=== PATIENT | female | born 1935 | race Caucasian/White ===

== ENCOUNTER 2016-09-24 11:32 | Inpatient (IN) | payer OTHER ==
--- NOTE | 2016-09-24 11:37 | EDPHY ---
HPI/HX/ROS/PE/MDM Narrative: CHIEF COMPLAINT: Hematemesis HPI: The patient is an 80-year-old female brought in by EMS with hematemesis. The patient complains of nausea and vomiting for the past 2 days. According to staff at the rehabilitation facility her last episode of emesis was black. Patient states she is unable to keep anything down. Vitals during transport were normal, pulse 102, BP: 114/40, O2: 94% room air, d-stick 137. The patient denies bloody stool, abdominal pain, or fever. Patient has no history of abdominal surgery. The patient was seen at [facility] 09/20 after a fall. She sustained a lumbar fracture and extensive ecchymosis to both arms. Hematocrit at that time was 28.2 The patient is currently in an assisted living facility. REVIEW OF SYSTEMS: Aside from elements discussed in the HPI, a comprehensive 10-point review of systems was reviewed and is negative. PMH: Macular degeneration, Osteoarthritis, Anemia, Lumbar fracture SOCIAL HISTORY: Lives at home independently. PHYSICAL EXAM: General: Patient is alert, in no acute distress. ENT: Eyes are normal to inspection. ENT inspection normal. Neck: Normal inspection. Full range of motion. Respiratory: No respiratory distress. Breath sounds normal bilaterally. Cardiovascular: Regular rate and rhythm. Strong peripheral pulses. Abdomen: The abdomen is nontender to palpation. There are no peritoneal signs. There are normal bowel sounds. Back: Normal to inspection. No tenderness to palpation. Skin: Normal color. No rash. Warm and dry. Extremities: Extensive ecchymosis of both arms, Pale appearing. Neuro: Oriented x3. Normal motor function. Normal sensory function. ED Course: The patient presents with coffee colored hematemesis that started today. I suspect upper GI bleed. The patient was seen at [facility] 09/20 after a fall. She sustained a lumbar fracture and extensive ecchymosis to both arms. Hematocrit of 09/20 was 28.2, today it is 25.8. 1:10 p.m.: I spoke to the hospitalist, the patient will be admitted to Dr. Estrada. MDM: This patient presents with report from [facility] of hematemesis/coffee ground emesis. She appears pale but is hemodynamically stable here in the ED. She is at elevated risk of complication from GI bleed secondary to age, baseline anemia and elevated INR and as such requires admission to the hospital for further observation and workup. - Data Points Laboratory Results: Laboratory Results 09/24/16 11:48 09/24/16 11:48 09/24/16 09/24/16 09/24/16 11:48 11:48 11:48 WBC 6.65 10^3/uL 10^3/uL (3.80-9.50) RBC 2.25 10^6/uL L 10^6/uL (4.18-5.33) Hgb 8.6 g/dL L g/dL (12.6-16.3) Hct 25.8 % L % (38.0-47.0) MCV 114.7 fL H fL (81.5-99.8) MCH 38.2 pg H pg (27.9-34.1) MCHC 33.3 g/dL g/dL (32.4-36.7) RDW 19.6 % H % (11.5-15.2) Plt Count 150 10^3/uL 10^3/uL (150-400) MPV 11.1 fL fL (8.7-11.7) Neut % (Auto) 71.3 % % (39.3-74.2) Lymph % (Auto) 20.2 % % (15.0-45.0) Gonzales % (Auto) 7.5 % % (4.5-13.0) Eos % (Auto) 0.2 % L % (0.6-7.6) Baso % (Auto) 0.2 % L % (0.3-1.7) Nucleat RBC Rel Count 0.0 % % (0.0-0.2) Absolute Neuts (auto) 4.75 10^3/uL 10^3/uL (1.70-6.50) Absolute Lymphs (auto) 1.34 10^3/uL 10^3/uL (1.00-3.00) Absolute Monos (auto) 0.50 10^3/uL 10^3/uL (0.30-0.80) Absolute Eos (auto) 0.01 10^3/uL L 10^3/uL (0.03-0.40) Absolute Basos (auto) 0.01 10^3/uL L 10^3/uL (0.02-0.10) Absolute Nucleated RBC 0.00 10^3/uL 10^3/uL (0-0.01) Immature Gran % 0.6 % % (0.0-1.1) Immature Gran # 0.04 10^3/uL 10^3/uL (0.00-0.10) PT 15.9 SEC H SEC (12.0-15.0) INR 1.27 H (0.83-1.16) APTT 33.7 SEC SEC (23.0-38.0) Sodium 138 mEq/L mEq/L (134-144) Potassium 4.1 mEq/L mEq/L (3.5-5.2) Chloride 107 mEq/L mEq/L (97-110) Carbon Dioxide 26 mEq/l mEq/l (22-31) Anion Gap 5 mEq/L L mEq/L (8-16) BUN 10 mg/dL mg/dL (7-23) Creatinine 0.5 mg/dL L mg/dL (0.6-1.0) Estimated GFR > 60 Glucose 108 mg/dL H mg/dL (70-100) Calcium 8.1 mg/dL L mg/dL (8.5-10.4) Total Bilirubin 2.4 mg/dL H mg/dL (0.1-1.4) Conjugated Bilirubin 0.6 mg/dL H mg/dL (0.0-0.5) Unconjugated Bilirubin 1.8 mg/dL H mg/dL (0.0-1.1) AST 33 IU/L IU/L (14-46) ALT 29 IU/L IU/L (9-52) Alkaline Phosphatase 106 IU/L IU/L (38-126) Total Protein 6.4 g/dL g/dL (6.3-8.2) Albumin 2.3 g/dL L g/dL (3.5-5.0) General Initial Vital Signs: Initial Vital Signs Temperature (C) 36.5 C 09/24/16 11:32 Heart Rate 98 09/24/16 11:32 Respiratory Rate 18 09/24/16 11:32 Blood Pressure 112/70 09/24/16 11:32 O2 Sat (%) 92 09/24/16 11:32 O2 Delivery Mode Room Air O2 (L/minute) 2 Allergies/Adverse Reactions: No Known Allergies Allergy (Unverified 09/24/16 11:38) Home Medications: Medication Instructions Recorded Acetaminophen [Tylenol 325mg (*)] 650 mg PO Q4H PRN 09/24/16 Amoxicillin/Clavulanate Pot 875 mg PO BID 09/24/16 [Augmentin 875 MG TAB (*)] C/E/Zn/Cu/OM3/DHA/EPA/LUT/ZEAX 1 each PO DAILY 09/24/16 [Preservision Areds 2 Softgel] Calcitonin [Fortical (*)] 200 units NASAL DAILY 09/24/16 Lidocaine 5% [Lidoderm 5% Patch 1 ea TD DAILY 09/24/16 (*)] Nystatin Powder [Mycostatin Powder 1 elisabeth TOP BID 09/24/16 (RX)] Ondansetron Odt [Zofran Odt 4 mg 4 mg PO Q4H PRN 09/24/16 (*)] Sennosides/Docusate Sodium 1 each PO Q12H PRN 09/24/16 [Senna-Docusate Sodium Tablet] Departure - Departure Disposition: [facility] Acute Clinical Impression: Upper GI bleed Condition: Fair Report Scribed for: Cipriano Carter Report Scribed by: Brooke Hunter Date of Report: 09/24/16 Time of Report: 11:51 Physician Review and Approval Statement: Portions of this note were transcribed by a medical dosimetrist. I personally performed the history, physical exam, and medical decision-making; and confirmed the accuracy of the information in the transcribed note.
[2016-09-24 11:56] LABS: % IMMATURE GRANULYOCYTES 0.6 % (0.0-1.1); ABSOLUTE IMMATURE GRANULOCYTES 0.04 10^3/uL (0.00-0.10); ADD DIFF? NO; ADD MORPH? NO; ADD SCAN? NO; ATYPICAL LYMPHOCYTE FLAG 60 (0-99); FRAGMENT RBC FLAG 0 (0-99); HEMATOCRIT 25.8 % (38.0-47.0); HEMOGLOBIN 8.6 g/dL (12.6-16.3); LEFT SHIFT FLG 0 (0-99); LIPEMIA HEMOLYSIS FLAG 80 (0-99); MEAN CELL HEMOGLOBIN 38.2 pg (27.9-34.1); MEAN CELL HEMOGLOBIN CONCENTR. 33.3 g/dL (32.4-36.7); MEAN CELL VOLUME 114.7 fL (81.5-99.8); MEAN PLATELET VOLUME 11.1 fL (8.7-11.7); PLATELET CLUMPS FLAG 10 (0-99); PLATELET COUNT 150 10^3/uL (150-400); RED BLOOD CELL COUNT 2.25 10^6/uL (4.18-5.33); RED CELL DISTRIBUTION WIDTH 19.6 % (11.5-15.2)
[2016-09-24 12:04] LABS: INR 1.27 (0.83-1.16); PROTIME(PATIENT) 15.9 SEC (12.0-15.0)
[2016-09-24 12:05] LABS: APTT 33.7 SEC (23.0-38.0)
[2016-09-24 12:24] LABS: ALANINE AMINOTRANSFERASE 29 IU/L (9-52); ALBUMIN 2.3 g/dL (3.5-5.0); ALKALINE PHOSPHATASE 106 IU/L (38-126); ANION GAP 5 mEq/L (8-16); ASPARTATE AMINOTRANSFERASE 33 IU/L (14-46); BILIRUBIN,TOTAL 2.4 mg/dL (0.1-1.4); BILIRUBIN-CONJUGATED 0.6 mg/dL (0.0-0.5); BILIRUBIN-UNCONJUGATED 1.8 mg/dL (0.0-1.1); CALCIUM 8.1 mg/dL (8.5-10.4); CARBON DIOXIDE 26 mEq/l (22-31); CHLORIDE 107 mEq/L (97-110); CREATININE 0.5 mg/dL (0.6-1.0); GLOMERULAR FILTRATION RATE > 60; GLUCOSE 108 mg/dL (70-100); POTASSIUM 4.1 mEq/L (3.5-5.2); SODIUM 138 mEq/L (134-144); TOTAL PROTEIN 6.4 g/dL (6.3-8.2)
[2016-09-24] MEDS ORDERED: BISACODYL 10 MG SUPP PR PRN (14:33)
[2016-09-24] MEDS ORDERED: POLYETHYLENE GLYCOL 3350 17 GM PKT PO PRN (14:33)
[2016-09-24] MEDS ORDERED: ONDANSETRON DISINTEGRATING 4 MG TAB PO PRN (14:33)
[2016-09-24] MEDS ORDERED: LACTULOSE 20 GM/30 ML UDCUP PO PRN (14:33)
[2016-09-24] MEDS ORDERED: ACETAMINOPHEN 325 MG TAB PO PRN (14:33)
[2016-09-24] MEDS ORDERED: ONDANSETRON 4 MG/2 ML VIAL IVP PRN (14:33)
[2016-09-24] MEDS ORDERED: MAGNESIUM HYDROXIDE 30 ML UDCUP PO PRN (14:33)
[2016-09-24] MEDS ORDERED: PROMETHAZINE HCL 25 MG TAB PO PRN (14:33)
[2016-09-24] MEDS ORDERED: HYDROmorphONE/DILAUDID 1 MG/ML SYR IVP PRN (14:33)
[2016-09-24] MEDS ORDERED: NS 1,000 ML IV SCH (14:45)
--- NOTE | 2016-09-24 14:45 | PDGENHP ---
History and Physical - Chief Complaint n/v - History of Present Illness 80 yo F presenting with several days of n/v and concerns raised at [facility] she is currently residing for hematemesis. Patient has evidence of some level of cognitive dysfunction at the time of my evaluation and therefore this history is limited by her confusion, family is present at bedside and also helping with history. Patient notes that 2 weeks ago she fell bringing trash out to the garage, and was subsequently so weak that she was unable to get up and was on the ground apparently for 2 days. She was brought into [facility] where she was worked up for weakness and found to have a subacute thoracic compression fracture, she was seen by nsg and treated with Haydee brace. She was also found to have a UTI and treated for that w/abx. She was discharged to [facility] 2 days prior to admission here. She notes she has never done well with pills, and at [facility] they were having her take some medications crushed in apple sauce, and frequently after taking these medications she would have nausea and vomiting. The last time was this morning, and it was noted at that time that her vomit appeared dark and possibly concerning for hematemesis. She denies abd pain. She does not take OTC pain medications, specifically NSAIDS or aspirin, although she admits that she is not sure what they are giving her at [facility]. She also notes continued significant left sided weakness. This is so severe that she has been unable to ambulate or even use the commode, she has been using a bedpan. She has limited mobility of her left arm and leg since the fall, this is not due strictly to pain per her, but rather that she simply cannot move these limbs very well anymore. She denies numbness. History Information - Allergies/Home Medication List Allergies/Adverse Reactions: No Known Allergies Allergy (Unverified 09/24/16 11:38) Home Medications: Acetaminophen [Tylenol 325mg (*)] 650 mg PO Q4H PRN 09/24/16 [Last Taken Unknown ] Amoxicillin/Clavulanate Pot [Augmentin 875 MG TAB (*)] 875 mg PO BID 09/24/16 [ Last Taken Unknown] C/E/Zn/Cu/OM3/DHA/EPA/LUT/ZEAX [Preservision Areds 2 Softgel] 1 each PO DAILY [Last Taken Unknown] Calcitonin [Fortical (*)] 200 units NASAL DAILY 09/24/16 [Last Taken Unknown] Lidocaine 5% [Lidoderm 5% Patch (*)] 1 ea TD DAILY 09/24/16 [Last Taken Unknown] Nystatin Powder [Mycostatin Powder (RX)] 1 elisabeth TOP BID 09/24/16 [Last Taken Unknown] Ondansetron Odt [Zofran Odt 4 mg (*)] 4 mg PO Q4H PRN 09/24/16 [Last Taken Unknown] Sennosides/Docusate Sodium [Senna-Docusate Sodium Tablet] 1 each PO Q12H PRN 08/08 [Last Taken Unknown] I have personally reviewed and updated: family history, medical history, social history, surgical history - Past Medical History Additional medical history: compression fracture t12. macular degeneration - Surgical History Reports: no pertinent surgical hx - Family History Positive for: non-pertinent - Social History Smoking Status: Former smoker Alcohol Use: Other (patient states she drinks regularly--up to 2-3 drinks per day) Drug Use: None Additional social history: currently residing at [facility] for the last 2 days. . Prior to one week or so ago lived independently. Has 2 children. Review of Systems ROS: 10pt was reviewed & negative except for what was stated in HPI & below Physical Exam Temp Pulse Resp BP Pulse Ox 36.7 C 92 20 118/56 L 92 09/24/16 14:33 09/24/16 14:33 09/24/16 14:33 09/24/16 14:33 09/24/16 14:33 Constitutional: no apparent distress, appears nourished, unkempt Eyes: PERRL Ears, Nose, Mouth, Throat: moist mucous membranes, hearing normal Cardiovascular: regular rate and rhythym, systolic murmur, edema Respiratory: no respiratory distress, no rales or rhonchi, clear to auscultation Gastrointestinal: normoactive bowel sounds, soft, non-tender abdomen Genitourinary: no bladder tenderness Skin: warm, other (hyperpigmented ble c/w venous stasis) Musculoskeletal: No full muscle strength, No asymmetric calves Neurologic: AAOx3, sensation intact bilaterally, weakness (left upper and lower extremity weakness), CN II-XII Intact Psychiatric: interacting appropriately, not anxious, flat affect, No thought process linear Lab Data & Imaging Review 09/24/16 11:48 09/24/16 11:48 WBC 6.65 10^3/uL (3.80-9.50) 09/24/16 11:48 RBC 2.25 10^6/uL (4.18-5.33) L 09/24/16 11:48 Hgb 8.6 g/dL (12.6-16.3) L 09/24/16 11:48 Hct 25.8 % (38.0-47.0) L 09/24/16 11:48 MCV 114.7 fL (81.5-99.8) H 09/24/16 11:48 MCH 38.2 pg (27.9-34.1) H 09/24/16 11:48 MCHC 33.3 g/dL (32.4-36.7) 09/24/16 11:48 RDW 19.6 % (11.5-15.2) H 09/24/16 11:48 Plt Count 150 10^3/uL (150-400) 09/24/16 11:48 MPV 11.1 fL (8.7-11.7) 09/24/16 11:48 Neut % (Auto) 71.3 % (39.3-74.2) 09/24/16 11:48 Lymph % (Auto) 20.2 % (15.0-45.0) 09/24/16 11:48 [place] % (Auto) 7.5 % (4.5-13.0) 09/24/16 11:48 Eos % (Auto) 0.2 % (0.6-7.6) L 09/24/16 11:48 Baso % (Auto) 0.2 % (0.3-1.7) L 09/24/16 11:48 Nucleat RBC Rel Count 0.0 % (0.0-0.2) 09/24/16 11:48 Absolute Neuts (auto) 4.75 10^3/uL (1.70-6.50) 09/24/16 11:48 Absolute Lymphs (auto) 1.34 10^3/uL (1.00-3.00) 09/24/16 11:48 Absolute Monos (auto) 0.50 10^3/uL (0.30-0.80) 09/24/16 11:48 Absolute Eos (auto) 0.01 10^3/uL (0.03-0.40) L 09/24/16 11:48 Absolute Basos (auto) 0.01 10^3/uL (0.02-0.10) L 09/24/16 11:48 Absolute Nucleated RBC 0.00 10^3/uL (0-0.01) 09/24/16 11:48 Immature Gran % 0.6 % (0.0-1.1) 09/24/16 11:48 Immature Gran # 0.04 10^3/uL (0.00-0.10) 09/24/16 11:48 PT 15.9 SEC (12.0-15.0) H 09/24/16 11:48 INR 1.27 (0.83-1.16) H 09/24/16 11:48 APTT 33.7 SEC (23.0-38.0) 09/24/16 11:48 Sodium 138 mEq/L (134-144) 09/24/16 11:48 Potassium 4.1 mEq/L (3.5-5.2) 09/24/16 11:48 Chloride 107 mEq/L (97-110) 09/24/16 11:48 Carbon Dioxide 26 mEq/l (22-31) 09/24/16 11:48 Anion Gap 5 mEq/L (8-16) L 09/24/16 11:48 BUN 10 mg/dL (7-23) 09/24/16 11:48 Creatinine 0.5 mg/dL (0.6-1.0) L 09/24/16 11:48 Estimated GFR > 60 09/24/16 11:48 Glucose 108 mg/dL (70-100) H 09/24/16 11:48 Calcium 8.1 mg/dL (8.5-10.4) L 09/24/16 11:48 Total Bilirubin 2.4 mg/dL (0.1-1.4) H 09/24/16 11:48 Conjugated Bilirubin 0.6 mg/dL (0.0-0.5) H 09/24/16 11:48 Unconjugated Bilirubin 1.8 mg/dL (0.0-1.1) H 09/24/16 11:48 AST 33 IU/L (14-46) 09/24/16 11:48 ALT 29 IU/L (9-52) 09/24/16 11:48 Alkaline Phosphatase 106 IU/L (38-126) 09/24/16 11:48 Total Protein 6.4 g/dL (6.3-8.2) 09/24/16 11:48 Albumin 2.3 g/dL (3.5-5.0) L 09/24/16 11:48 Assessment & Plan Assessment: 80 yo F with PMH of fall about 2 weeks ago and residual dense left sided weakness pw n/v and possible hematemesis # n/v: sounds related to pills which she does not tolerate well, currently without any nausea. Will start clear liquids and ask for speech to eval. # ? hematemesis: reported from facility to have had dark emesis concerning for UGIB. Has not recurred, H/H low but relatively stable from one week prior. Possible MWT given days of vomiting preceding dark vomit. Will trend h/h and monitor for recurrence. Patient has declined endoscopy in the past so will need to discuss with patient and family further if seems indicated # left sided weakness: relatively dense left sided weakness still present, patient unable to walk currently and was independent completely a little more than 1 week ago. In review of records from [facility], had CT head and CT L spine, but no brain MRI and weakness largely attributed to compression fracture. Have concerns for subacute CVA so will obtain brain MRI. Neuro consult if abnormal. PT/OT to be involved. will dc back to snf. 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 Old records reviewed and summarized as above. Care plan reviewed with ER doctor as above, further hx obtained from daughter and son in law present at bedside.
[2016-09-24] MEDS: oxyCODONE IR 5 MG TAB PO PRN ×2 (17:06→21:47)
[2016-09-24 18:48] LABS: HEMATOCRIT 24.6 % (38.0-47.0); HEMOGLOBIN 8.1 g/dL (12.6-16.3)
[2016-09-24] MEDS ORDERED: AMOXICILLIN/CLAVULANATE POT 875/125 MG TAB PO SCH (21:00)
[2016-09-24] MEDS: SENNOSIDES/DOCUSATE SODIUM TAB PO SCH (21:57)
[2016-09-24] MEDS: NYSTATIN POWDER 15 GM BTL TP SCH (23:10)
[2016-09-24 23:37] LABS: COLOR AMBER; LEUKOCYTE ESTERASE,URINE NEGATIVE (NEGATIVE); NITRITE,URINE NEGATIVE (NEGATIVE)
[2016-09-25 05:44] LABS: % IMMATURE GRANULYOCYTES 0.4 % (0.0-1.1); ABSOLUTE IMMATURE GRANULOCYTES 0.02 10^3/uL (0.00-0.10); ADD DIFF? NO; ADD MORPH? YES; ADD SCAN? NO; ATYPICAL LYMPHOCYTE FLAG 70 (0-99); FRAGMENT RBC FLAG 0 (0-99); HEMATOCRIT 23.7 % (38.0-47.0); HEMOGLOBIN 7.5 g/dL (12.6-16.3); LEFT SHIFT FLG 0 (0-99); LIPEMIA HEMOLYSIS FLAG 80 (0-99); MEAN CELL HEMOGLOBIN 36.9 pg (27.9-34.1); MEAN CELL HEMOGLOBIN CONCENTR. 31.6 g/dL (32.4-36.7); MEAN PLATELET VOLUME 10.9 fL (8.7-11.7); PLATELET CLUMPS FLAG 0 (0-99); PLATELET COUNT 123 10^3/uL (150-400); RED BLOOD CELL COUNT 2.03 10^6/uL (4.18-5.33); RED CELL DISTRIBUTION WIDTH 19.6 % (11.5-15.2)
[2016-09-25 06:01] LABS: MEAN CELL VOLUME 116.7 fL (81.5-99.8)
[2016-09-25 06:24] LABS: ANION GAP 7 mEq/L (8-16); CALCIUM 7.7 mg/dL (8.5-10.4); CARBON DIOXIDE 23 mEq/l (22-31); CHLORIDE 111 mEq/L (97-110); CREATININE 0.5 mg/dL (0.6-1.0); GLOMERULAR FILTRATION RATE > 60; GLUCOSE 71 mg/dL (70-100); POTASSIUM 3.4 mEq/L (3.5-5.2); SODIUM 141 mEq/L (134-144)
[2016-09-25 07:42] LABS: MACROCYTES 2+; PLATELET ESTIMATE DECREASED (ADEQ)
[2016-09-25 07:43] LABS: POLYCHROMASIA 1+
[2016-09-25] MEDS ORDERED: PROTOCOL POTASSIUM 1 DOSE MISC PRN (07:54)
--- NOTE | 2016-09-25 08:41 | HOSPPROG ---
Hospitalist Progress Note Assessment/Plan: Patient is an 80 y/o woman who had several days of n/v. Also was noted that she had some bouts of vomiting, concern for hematemesis. She was also recently seen @ [facility] for weakness and found to have subacute thoracic compression fracture and treated w a [place] brace. At that time also had a UTI and was treated. Today is my first encounter w the patient. Chart reviewed / discussed care with Dr Rick. Appreciate Dr Loya seeing her. *n/v: ST to see/pt doesn't tolerate pills patient describes not being able to swallow pills/that is what is causing the nausea concern for stricture *anemia drop over night concern is she had hematemesis will discuss w patient and family about poss endoscopy/ had declined in the past initiate PPI NPO Dr Loya to see *gait instability w fall 2 weeks ago suspect it's not left sided weakness but pain patient stated she had multiple xrays done, including on left side getting info from [facility] sent *left side weakness noted on admit/ but is having more pain will get xrays MRI doesn't indicate a stroke *compression fx/ subacute T12 had been evaluated by neurosurgery at [facility] *gait instability with recent falls PT and OT to see *hypokalemia electrolyte protocol *diastolic dysfunction/valvular heart disease no decompensation noted *dvt prophylaixs: will hold chemical treatment due to drop in h/h *Code status: MOST form shows DNR Subjective: Reena is willing to get an EGD/was fearful because of her difficulty w swallowing. Objective: Vital Signs Temp Pulse Resp BP Pulse Ox 36.4 C 88 16 93/45 L 99 09/25/16 08:06 09/25/16 08:06 09/25/16 08:06 09/25/16 08:06 09/25/16 08:06 Laboratory Results 09/25/16 05:14 09/25/16 05:14 09/24/16 09/25/16 09/26/16 05:59 05:59 05:59 Intake Total 1180 Output Total 300 Balance 880 PT 15.9 SEC (12.0-15.0) H 09/24/16 11:48 INR 1.27 (0.83-1.16) H 09/24/16 11:48 - Physical Exam Constitutional: chronically ill appearing, uncomfortable, No not in pain (left elbow area) Ears, Nose, Mouth, Throat: hearing normal Cardiovascular: regular rate and rhythym Respiratory: no respiratory distress Gastrointestinal: normoactive bowel sounds Skin: warm, other (multiple ecchymotic area on right hand /right wrist area) Musculoskeletal: No no muscle tenderness Neurologic: AAOx3 Psychiatric: interacting appropriately ICD10 Worksheet Patient Problems: Problems Problem Status Onset Upper GI bleed Acute
[2016-09-25] MEDS ORDERED: PANTOPRAZOLE SODIUM 40 MG in NS 100 ML IV SCH (09:00)
--- NOTE | 2016-09-25 09:08 | PDCONSULT ---
Human Resources Professional Note: HOSPITAL NEUROLOGY CONSULT REQUESTING: Zachary Flores MD REASON: possible stroke HPI: This is an 80-year-old right-handed woman with a history of macular degeneration who presented to our facility due to hematemesis. Patient had been admitted to [facility] September 16 through September 20 after suffering a fall at home. She tripped and fell in her garage while taking the garbage out and had landed on her left side. She states that she laid on her left side for upwards of 2 days before she was found. She was transported to [facility] where she was found to have a T12 compression fracture, which was non operative in nature and treated with a brace. She was also found to have an E coli urinary tract infection at that time. Her labs did reveal her to be anemic, but she had apparently declined further workup at that time. She was subsequently discharged to [facility] for rehabilitation. The day prior to her admission here, the patient had been experiencing nausea and was vomiting. Her emesis appeared very dark, and there was concern for the color being the result of blood products in her vomit. She was subsequently transported here for further evaluation of possible upper GI bleed. She was indeed found to be anemic with positive stool occult blood. She was also found to be thrombocytopenic. She is currently undergoing evaluation for upper GI bleed. During her hospitalization, there was some indication that she may have had some left-sided weakness in the arm and leg. An MRI brain without contrast was performed and the report indicated a possible lacunar infarction involving the right posterior limb of the internal capsule. On interview with the patient , she denies any paulo weakness, stating that she is having difficulty moving the left arm and leg due to severe pain, particularly about the left elbow and left forearm as well as the left knee and ankle. She is able to move the extremities very slowly and deliberately in an effort to avoid acute pain exacerbation. She denies any sensory changes. She has no new visual disturbance aside from her baseline central vision loss from macular degeneration. She is not experiencing any speech / language disturbance. ROS: As per the HPI, otherwise a complete 12 point ROS was performed and is negative ALLERGIES AND MEDS: As recorded in the EMR - reviewed and reconciled PFSH: As per the intake H&P by Dr. Estrada from yesterday EXAM: VS reviewed in EMR GEN: frail appearing elderly woman with ecchymoses scattered about the extremities, laying in NAD HEENT: NCAT, sclera anicteric, conjunctiva not injected, MMM, oropharynx clear, no scalp tenderness NECK: supple, nontender, no meningismus CV: RRR s1 s2, grade 2 systolic murmur best at apex. Carotid pulses 2+ wo bruit MSK: tender to touch in the LUE namely about the elbow and forearm, tender in LLE namely about the knee and ankle. Same pain with passive movement of the LUE /LLE. NEURO: MS: awake, alert, oriented to all spheres. Speech nondysarthric. No language disturbance. Follows commands. Attends to both sides. Recent/remote memory grossly intact. Mood euthymic. Good fund of knowledge. CN: pupils 3mm round and reactive. Intolerant of fundoscopy. Central vision loss on confrontation, but peripheral mercado intact OU. Primary gaze centered. Full ocular motility, though smooth pursuit with saccadic intrusions. Facial sensation preserved. Face symmetric. Hearing grossly intact to finger rub. Palatoglossal movements intact. Shoulder shrug and head turn strong. MOTOR: reduced bulk throughout. No adventitial movements. Globally weak, with 4+/5 strength on right, she has giveway weakness in left arm and leg due to pain in the extremities SENSORY: intact and symmetric LT/PP. No extinction. COORD: no ataxia FN/HS. Virginie labored. REFLEX: plantars down. No clonus. DTRS absent. GAIT: deferred to PT eval DATA REVIEW: Labs reviewed in EMR PERSONALLY INTERPRETED RESULTS AND DATA: MRI brain wo - global volume loss, scattered areas of T2 FLAIR hyperintensity in the deep white matter/basal ganglia. I do not see any evidence of restricted diffusion, specifically in the right internal capsule. That is, no change in DWI or ADC signal sequences. IMPRESSION AND RECOMMENDATIONS: // ANEMIA - PROBABLE UGI BLEED // T12 COMPRESSION FRACTURE AFTER FALL // LEFT ARM AND LEG PAIN - TRAUMATIC // LEFT ARM AND LEG WEAKNESS SECONDARY TO PAIN Patient presents with hematemesis and anemia with hemoglobin and platelet counts trending down. Workup for UGI bleed is ongoing with primary team. Her weakness on the left seems to be a result of pain from the trauma and prolonged downtime on the left side after her fall. I don't think this is neurologic in origin. I respectfully disagree with the interpretation of the MRI in that I do not see any evidence of acute/subacute ischemia. She does have some chronic microvascular ischemic changes in the deep white matter/basal ganglia, but nothing acute/subacute. I would recommend screening X-rays of her LUE/LLE to assess for fracture, as her pain to palpation/movement is quite severe and seems a bit out of proportion to soft tissue injury. I discussed this with the primary team. No further neurodiagnostics. She should continue to work with PT/OT. Anemia/GI workup and stabilization per primary team. Case discussed with Camilla Feliz NP. Will sign off. Please recall as needed.
[2016-09-25 09:43] LABS: POTASSIUM 3.5 mEq/L (3.5-5.2)
[2016-09-25] MEDS: SENNOSIDES/DOCUSATE SODIUM TAB PO SCH ×2 (09:52→20:36)
[2016-09-25] MEDS: LIDOCAINE 5% 1 EA PATCH TD SCH (10:07)
[2016-09-25] MEDS: NYSTATIN POWDER 15 GM BTL TP SCH ×2 (10:11→20:35)
[2016-09-25] MEDS ORDERED: EPINEPHrine 1 MG/10 ML SYR IVP ONE (10:36)
[2016-09-25] MEDS ORDERED: DEXAMETHASONE 4 MG/ML VIAL ONE (10:50)
[2016-09-25] MEDS ORDERED: PROPOFOL 200 MG/20 ML VIAL ONE ×2 (10:50)
[2016-09-25] MEDS ORDERED: LIDOCAINE 2% 5 ML SDV ONE (10:51)
[2016-09-25] MEDS ORDERED: FAMOTIDINE 20 MG/2 ML SDV ONE (10:54)
--- NOTE | 2016-09-25 11:16 | POSTOPPROG ---
Post Op Note Date of Operation: 09/25/16 Surgeon: Pascual Loya Finisher Denture: None Anesthesiologist: Dr Benitez Anesthesia: Other (Specify) (IV General) Pre-op Diagnosis: Dysphagia and hematemesis Post-op Diagnosis: 1.Same. 2.Diffuse ulceration of distal esophagus with stricture(dilated). Indication: Dysphagia and hematemesis. Procedure: EGD with balloon dilation of distal esophgeal stricture. Findings: Distal esophageal ulceration with high grade benign stricture. Inf/Abcess present in the surg proc area at time of surgery?: No EBL: Minimal Total fluids administered: None. Complications: None Specimen(s): None.
--- NOTE | 2016-09-25 11:21 | GCON ---
[f rep st] CONSULTATION DATE OF CONSULTATION: 09/25/2016 CHIEF COMPLAINT: Dysphagia, nausea, and an episode of hematemesis. HISTORY OF PRESENT ILLNESS: The patient is an 80-year-old female who was admitted to [facility] on 09/24/2016 with complaints of several days of nausea, vomiting, and hematemesis. She has dysphagia to solids. She has denied any heartburn or indigestion. She has declined endoscopic evaluations in the past. I was asked to see the patient by Camilla Feliz NP , today for consideration of endoscopic evaluation. MEDICATIONS: Prior to admission included: Augmentin 875 mg p.o. twice daily. Zofran 4 mg q.4 hours p.o. p.r.n. nausea. Calcitonin 200 units nasally daily. ALLERGIES: She has no known drug allergies. PAST MEDICAL HISTORY: Significant for valvular heart disease and diastolic dysfunction, compression fracture of T12, chronic left-sided weakness and gait instability, and UTIs. PAST SURGICAL HISTORY: Unremarkable. FAMILY HISTORY: Negative for GI malignancies or peptic ulcer disease. SOCIAL HISTORY: She is a former smoker. She has not smoked for greater than 10 years. She does drink 1-2 drinks of alcohol per day. She resides in [facility] in [place]. She is retired. She is a . She has 2 living children in good health. REVIEW OF SYSTEMS: Other than complaints of weakness, dysphagia, and intermittent nausea, is negative for a comprehensive system review. PHYSICAL EXAMINATION: VITAL SIGNS: On my exam today, her temperature is 36.4 Celsius. Her heart rate is 88 and regular. Blood pressure 93/45. Respiratory rate is 16. O2 saturation 99% on 1 L per nasal cannula. GENERAL: A cachectic- appearing female looking fatigued. INTEGUMENT: Ecchymoses on the upper extremities. HEENT: Head atraumatic, normocephalic. Pupils equal, round, reactive to light. EOM intact. Sclerae are nonicteric. Nares patent. Mucous membranes moist. Dentition fair. NECK: Supple. Trachea midline. LYMPHATICS : No cervical or axillary adenopathy. PULMONARY: Lungs clear to percussion and auscultation. CARDIOVASCULAR: Regular rhythm and rate. Normal S1, S2 without murmur. Peripheral pulses decreased bilaterally. No pedal edema. GASTROINTESTINAL: Abdomen supple. Positive bowel sounds. Liver is palpable. No masses or tenderness noted. EXTREMITIES: Without deformity. NEURO: Patient is alert and oriented x3. There are no focal neurologic deficits. LABS: Hemoglobin 7.5, hematocrit 23.7, white count 5.2, platelets 123,000. ProTime 15.9. INR 1.27. PTT 33.7. Electrolytes normal. BUN 9, creatinine 0.5. LFTs normal. Urinalysis negative. Stool was Hemoccult positive. IMPRESSION: Dysphagia and intermittent nausea with normocytic normochromic anemia and mild thrombocytopenia. Rule out peptic ulcer. Rule out esophageal stricture. RECOMMENDATION: Proceed with esophagogastroduodenoscopy. Due to her multiple medical conditions and frail state she is at increased risk of complication and I will therefore perform this procedure with MAC. /[id number]/MODL MTDD
--- NOTE | 2016-09-25 11:46 | GPN ---
[f rep st] PROCEDURE NOTE DATE OF PROCEDURE: 09/25/2016 NAME OF PROCEDURE: Esophagogastroduodenoscopy with dilation of distal esophageal stricture. PREOPERATIVE DIAGNOSIS: Dysphagia and hematemesis. POSTOPERATIVE DIAGNOSES: 1. Dysphagia and hematemesis. 2. Diffuse ulceration of distal 3 cm of the esophagus with benign stricture- dilated to 12 mm with balloon dilator. 3. Moderate hiatal hernia pouch. CLINICAL HISTORY/INDICATION: The patient is an 80-year-old female who was admitted to the hospital with weakness, dysphagia, nausea and hematemesis and anemia. She does have heme-positive stool. She was set up for EGD today. PERMIT: Patient was informed of indication for procedure. Risks and benefits were outlined by me, informed consent was obtained. PREOPERATIVE MEDICATIONS: IV general anesthetic per Dr. Benitez. PROCEDURE FINDINGS: A GIF-180 video endoscope was inserted into the oropharynx and passed to the proximal esophagus under direct visualization. The esophageal mucosa appeared normal in the cervical esophagus and the mid esophagus; however, the distal 3 cm of the esophagus was diffusely ulcerated and denoted with high-grade stricture. Scope could not pass across this stricture, albeit the lumen could be visualized into the stomach. With an aid of a balloon dilator the distal esophageal stricture was dilated sequentially with 10 mm, 11 mm and 12 mm balloon diameters. Scope could then pass across the stricture into a moderate hiatal hernia pouch and into the stomach. Gastric lumen appeared normal both in front view and retroflexed position of the instrument. Pyloric channel, duodenal bulb and sweep were normal to the second portion of the duodenum. The scope was slowly withdrawn and removed. Patient tolerated procedure well and was sent to recovery room in satisfactory condition. IMPRESSION: Dysphagia and hematemesis secondary to distal esophageal ulceration and stricture-status post dilation to a maximum of 12 mm without difficulty with balloon dilator. RECOMMENDATION: 1. Mechanical soft diet. 2. Protonix 40 mg p.o. twice daily. 3. Would recommend repeat EGD with dilation in 1-2 weeks' time. /[id number]/MODL MTDD
--- NOTE | 2016-09-25 12:26 | WOCRNPDOC ---
WOCRN Advanced Assessment Note - Skin Integrity Problem, Advanced Assess Groin Incont Assoc Dermatitis Skin Integrity Problem Comment: Mild. Sacrum Pressure Injury Dressing Type: Allevyn Life Dressing Description: Clean/Dry, Intact Site Measurement - Head-to-Toe Length X Width X Depth (cm): 3x1.5x0 Pressure Injury Stage: Stage 1 Pressure Injury Present on Admit: Yes Skin Integrity Problem Comment: Stage 1 pressure injury with a thin linear partial thickness opening consisted with intertriginous dermatitis. Please reconsult wound care prn. Patient incontinent of stool and urine. Bilateral Breast Skin Integrity Problem Comment: Being treated with nystatin. Minimal redness. Continue current plan of care.
[2016-09-25] MEDS: POTASSIUM Cl (KCl) 100 ML IV SCH ×2 (13:24→15:12)
[2016-09-25] MEDS: CALCITONIN 200 UNITS/SPRAY INH NS SCH (13:24)
[2016-09-25 18:15] LABS: POTASSIUM 4.1 mEq/L (3.5-5.2)
[2016-09-25] MEDS: PANTOPRAZOLE SODIUM 40 MG in NS 100 ML IV SCH (20:35)
[2016-09-25] MEDS: PATCH REMOVAL 1 EA PATCH TD SCH (20:37)
[2016-09-25] MEDS ORDERED: PANTOPRAZOLE SODIUM 40 MG TAB PO SCH (21:00)
[2016-09-26] MEDS: NS W/ 20 KCl/L 1,000 ML IV SCH (02:19)
[2016-09-26 05:52] LABS: % IMMATURE GRANULYOCYTES 0.4 % (0.0-1.1); ABSOLUTE IMMATURE GRANULOCYTES 0.02 10^3/uL (0.00-0.10); ADD DIFF? NO; ADD MORPH? YES; ADD SCAN? NO; ATYPICAL LYMPHOCYTE FLAG 30 (0-99); FRAGMENT RBC FLAG 0 (0-99); HEMATOCRIT 23.1 % (38.0-47.0); HEMOGLOBIN 7.6 g/dL (12.6-16.3); LEFT SHIFT FLG 10 (0-99); LIPEMIA HEMOLYSIS FLAG 80 (0-99); MEAN CELL HEMOGLOBIN 38.2 pg (27.9-34.1); MEAN CELL HEMOGLOBIN CONCENTR. 32.9 g/dL (32.4-36.7); MEAN PLATELET VOLUME 10.7 fL (8.7-11.7); PLATELET CLUMPS FLAG 0 (0-99); PLATELET COUNT 142 10^3/uL (150-400); RED BLOOD CELL COUNT 1.99 10^6/uL (4.18-5.33); RED CELL DISTRIBUTION WIDTH 19.1 % (11.5-15.2)
[2016-09-26 06:07] LABS: ANION GAP 8 mEq/L (8-16); CALCIUM 7.6 mg/dL (8.5-10.4); CARBON DIOXIDE 21 mEq/l (22-31); CHLORIDE 110 mEq/L (97-110); CREATININE 0.5 mg/dL (0.6-1.0); GLOMERULAR FILTRATION RATE > 60; GLUCOSE 91 mg/dL (70-100); POTASSIUM 4.1 mEq/L (3.5-5.2); SODIUM 139 mEq/L (134-144)
[2016-09-26 06:23] LABS: MEAN CELL VOLUME 116.1 fL (81.5-99.8)
[2016-09-26 07:37] LABS: MACROCYTES 2+; PLATELET ESTIMATE DECREASED (ADEQ); POLYCHROMASIA 2+
--- NOTE | 2016-09-26 08:53 | HOSPPROG ---
Hospitalist Progress Note Assessment/Plan: Patient is an 80 y/o woman who had several days of n/v. Also was noted that she had some bouts of vomiting, concern for hematemesis. She was also recently seen @ [facility] for weakness and found to have subacute thoracic compression fracture and treated w a [place] brace. At that time also had a UTI and was treated. *encephalopathy her mentation waxes and wanes she was alert and oriented this morning, but more confused this afternoon *n/v: resolved *anemia/hematemesis PPI cont to have low h/h but hasn't really worsen EGD noted a distal esophageal ulcer *dysphagia/ stricture status post dilation she will need a repeat EGD in 1-2 weeks *gait instability w fall 2 weeks ago suspect it's not left sided weakness but pain patient stated she had multiple xrays done, including on left side reviewed info from [facility] * elevated MCV patient states that she does not drink that much alcohol will monitor for any signs or symptoms of withdrawal *left side weakness noted on admit/ but is having more pain will get xrays MRI doesn't indicate a stroke *left forearm pain will get an xray *compression fx/ subacute T12 had been evaluated by neurosurgery at [facility] *gait instability with recent falls PT and OT to see *hypokalemia resolved *diastolic dysfunction/valvular heart disease no decompensation noted *dvt prophylaixs: will hold chemical treatment due to drop in h/h *Code status: MOST form shows DNR Subjective: Reena is c/o left forearm pain. Objective: Vital Signs Temp Pulse Resp BP Pulse Ox 36.4 C 84 17 107/54 L 98 09/26/16 07:08 09/26/16 07:08 09/26/16 07:08 09/26/16 07:08 09/26/16 07:08 Laboratory Results 09/26/16 04:49 09/26/16 04:49 09/25/16 09/26/16 09/27/16 05:59 05:59 05:59 Intake Total 1180 1950 Output Total 300 600 Balance 880 1350 PT 15.9 SEC (12.0-15.0) H 09/24/16 11:48 INR 1.27 (0.83-1.16) H 09/24/16 11:48 - Physical Exam Constitutional: chronically ill appearing, uncomfortable, other (thin) Eyes: PERRL Ears, Nose, Mouth, Throat: hearing normal Cardiovascular: regular rate and rhythym Respiratory: no respiratory distress Gastrointestinal: normoactive bowel sounds Skin: warm, other (multilple bruises/ecchymosis on arms) Musculoskeletal: muscular tenderness, generalized weakness Neurologic: other (alert and oriented to place, time, not clear why she's here) Psychiatric: interacting appropriately ICD10 Worksheet Patient Problems: Problems Problem Status Onset Upper GI bleed Acute
[2016-09-26] MEDS ORDERED: MULTIVITAMINS W-IRON (PEDS) 1 ML UDSYR PO SCH (09:30)
[2016-09-26] MEDS: LIDOCAINE 5% 1 EA PATCH TD SCH (09:45)
[2016-09-26] MEDS: THIAMINE HCL 100 MG TAB PO SCH (09:45)
[2016-09-26] MEDS: CALCITONIN 200 UNITS/SPRAY INH NS SCH (09:45)
[2016-09-26] MEDS: FOLIC ACID 1 MG TAB PO SCH (09:45)
[2016-09-26] MEDS: NYSTATIN POWDER 15 GM BTL TP SCH ×2 (09:49→21:51)
[2016-09-26] MEDS: PANTOPRAZOLE SODIUM 40 MG in NS 100 ML IV SCH ×2 (09:56→21:54)
[2016-09-26] MEDS: SENNOSIDES/DOCUSATE SODIUM TAB PO SCH ×2 (09:57→21:30)
--- NOTE | 2016-09-26 13:21 | SOAPPROG ---
SOAP Progress Note Assessment/Plan: Assessment: 1. Dysphagia; resolved after dilation of distal esophageal stricture. 2. Reflux esophageal ulcers; on PPI therapy. Plan: 1. Will sign off today. 2. Will set up outpatient EGD at [facility] with MAC for repeat dilation of esophageal stricture in 2 weeks. Pascual Loya MD 09/26/16 13:18 Subjective: CC: Esophageal stricture. Interval HPI: Patient feeling well. Tolerating regular diet without dysphagia or pain. Objective: Vital Signs Temp Pulse Resp BP Pulse Ox 36.5 C 92 18 111/53 L 93 09/26/16 11:28 09/26/16 11:28 09/26/16 11:28 09/26/16 11:28 09/26/16 12:20 Laboratory Results 09/26/16 04:49 09/26/16 04:49 09/25/16 09/26/16 09/27/16 05:59 05:59 05:59 Intake Total 1180 1950 300 Output Total 300 600 Balance 880 1350 300 PT 15.9 SEC (12.0-15.0) H 09/24/16 11:48 INR 1.27 (0.83-1.16) H 09/24/16 11:48 Physical Exam - Physical Exam General Appearance: alert, no apparent distress Respiratory: chest non-tender, lungs clear, normal breath sounds Cardiac/Chest: normal peripheral pulses, regular rate, rhythm Abdomen: normal bowel sounds, non-tender, soft Neuro/Psych: alert, normal mood/affect, oriented x 3 ICD10 Worksheet Patient Problems: Problems Problem Status Onset Upper GI bleed Acute
[2016-09-26 16:11] VITALS: RESP 16
[2016-09-26] MEDS: MULTIVIT/MINERAL/FERR GLUC 15 ML UDL PO SCH (17:23)
[2016-09-26 18:36] LABS: POTASSIUM 3.7 mEq/L (3.5-5.2)
[2016-09-26] MEDS ORDERED: POTASSIUM CL 10 MEQ TAB PO ONE ×2 (18:48→22:00)
[2016-09-26] MEDS: PATCH REMOVAL 1 EA PATCH TD SCH (21:51)
[2016-09-26 22:33] VITALS: O2SAT 91
[2016-09-27 05:32] LABS: ALANINE AMINOTRANSFERASE 37 IU/L (9-52); ALBUMIN 2.2 g/dL (3.5-5.0); ALKALINE PHOSPHATASE 145 IU/L (38-126); ANION GAP 5 mEq/L (8-16); ASPARTATE AMINOTRANSFERASE 57 IU/L (14-46); BILIRUBIN,TOTAL 1.3 mg/dL (0.1-1.4); CALCIUM 7.9 mg/dL (8.5-10.4); CARBON DIOXIDE 23 mEq/l (22-31); CHLORIDE 111 mEq/L (97-110); CREATININE 0.5 mg/dL (0.6-1.0); GLOMERULAR FILTRATION RATE > 60; GLUCOSE 86 mg/dL (70-100); POTASSIUM 3.8 mEq/L (3.5-5.2); SODIUM 139 mEq/L (134-144)
[2016-09-27 05:35] LABS: % IMMATURE GRANULYOCYTES 0.4 % (0.0-1.1); ABSOLUTE IMMATURE GRANULOCYTES 0.02 10^3/uL (0.00-0.10); ADD DIFF? NO; ADD MORPH? YES; ADD SCAN? NO; ATYPICAL LYMPHOCYTE FLAG 60 (0-99); FRAGMENT RBC FLAG 0 (0-99); HEMATOCRIT 24.3 % (38.0-47.0); LEFT SHIFT FLG 0 (0-99); LIPEMIA HEMOLYSIS FLAG 80 (0-99); MEAN CELL HEMOGLOBIN 38.1 pg (27.9-34.1); MEAN CELL HEMOGLOBIN CONCENTR. 32.9 g/dL (32.4-36.7); MEAN PLATELET VOLUME 10.4 fL (8.7-11.7); PLATELET CLUMPS FLAG 0 (0-99); PLATELET COUNT 157 10^3/uL (150-400)
[2016-09-27 05:37] LABS: MEAN CELL VOLUME 115.7 fL (81.5-99.8)
[2016-09-27] MEDS: NS W/ 20 KCl/L 1,000 ML IV SCH (06:21)
[2016-09-27 07:05] LABS: MACROCYTES 2+; PLATELET ESTIMATE ADEQUATE (ADEQ); POLYCHROMASIA 1+
[2016-09-27 07:22] VITALS: BP 104/56; PULSE 94; TEMP 97.8
[2016-09-27] MEDS: FOLIC ACID 1 MG TAB PO SCH (08:13)
[2016-09-27] MEDS: LIDOCAINE 5% 1 EA PATCH TD SCH (08:13)
[2016-09-27] MEDS: PANTOPRAZOLE SODIUM 40 MG in NS 100 ML IV SCH (08:13)
[2016-09-27] MEDS: THIAMINE HCL 100 MG TAB PO SCH (08:13)
[2016-09-27] MEDS: SENNOSIDES/DOCUSATE SODIUM TAB PO SCH (08:13)
[2016-09-27] MEDS: CALCITONIN 200 UNITS/SPRAY INH NS SCH (08:13)
[2016-09-27] MEDS: MULTIVIT/MINERAL/FERR GLUC 15 ML UDL PO SCH (08:14)
[2016-09-27] MEDS: NYSTATIN POWDER 15 GM BTL TP SCH (08:14)
--- NOTE | 2016-09-27 09:06 | HOSPPROG ---
Hospitalist Progress Note Assessment/Plan: Patient is an 80 y/o woman who had several days of n/v. Also was noted that she had some bouts of vomiting, concern for hematemesis. She was also recently seen @ [facility] for weakness and found to have subacute thoracic compression fracture and treated w a [place] brace. At that time also had a UTI and was treated. *encephalopathy resolved alert and oriented *n/v: resolved *anemia/hematemesis PPI cont to have low h/h but hasn't really worsen EGD noted a distal esophageal ulcer *dysphagia/esopahgeal stricture status post dilation she will need a repeat EGD in 1-2 weeks *gait instability w fall 2 weeks ago suspect it's not left sided weakness but pain patient stated she had multiple xrays done, including on left side reviewed info from [facility] * elevated MCV patient states that she does not drink that much alcohol no signs of withdrawal, but had episodes of confusion * elevated LFT's will [facility] *left side weakness noted on admit MRI shows no acute stroke *left forearm pain xray shows nothign acute *compression fx/ subacute T12 had been evaluated by neurosurgery at [facility] *gait instability with recent falls PT and OT to see *hypokalemia resolved *diastolic dysfunction/valvular heart disease no decompensation noted *dvt prophylaixs: will hold chemical treatment due to drop in h/h/athrombic pumps *Code status: MOST form shows DNR Subjective: Reena isn't hungry. Not c/o pain. Objective: Vital Signs Temp Pulse Resp BP Pulse Ox 36.6 C 94 16 104/56 L 91 L 09/27/16 07:21 09/27/16 07:21 09/27/16 07:21 09/27/16 07:21 09/27/16 07:21 Laboratory Results 09/27/16 04:50 09/27/16 04:50 09/26/16 09/27/16 09/28/16 05:59 05:59 05:59 Intake Total 1950 410 Output Total 600 400 Balance 1350 10 PT 15.9 SEC (12.0-15.0) H 09/24/16 11:48 INR 1.27 (0.83-1.16) H 09/24/16 11:48 - Physical Exam Constitutional: chronically ill appearing, uncomfortable Eyes: PERRL Ears, Nose, Mouth, Throat: hearing normal Cardiovascular: regular rate and rhythym Respiratory: no respiratory distress Gastrointestinal: normoactive bowel sounds Skin: warm Musculoskeletal: generalized weakness Neurologic: AAOx3 Psychiatric: interacting appropriately, not anxious, not encephalopathic, thought process linear ICD10 Worksheet Patient Problems: Problems Problem Status Onset Upper GI bleed Acute
--- NOTE | 2016-09-27 09:20 | PDIAF ---
- Diagnosis Diagnosis: encephalopathy, anemia, esopahgeal stricture, T12 compression fx Code Status: Do Not Resuscitate - Medication Management Discharge Medications: Medications to Continue on Transfer Acetaminophen [Tylenol 325mg (*)] 650 mg PO Q4H PRN 09/24/16 [Last Taken Unknown ] C/E/Zn/Cu/OM3/DHA/EPA/LUT/ZEAX [Preservision Areds 2 Softgel] 1 each PO DAILY [Last Taken Unknown] Calcitonin [Fortical (*)] 200 units NASAL DAILY 09/24/16 [Last Taken Unknown] Lidocaine 5% [Lidoderm 5% Patch (*)] 1 ea TD DAILY 09/24/16 [Last Taken Unknown] Nystatin Powder [Mycostatin Powder] 1 elisabeth TOP BID 09/24/16 [Last Taken Unknown] Ondansetron Odt [Zofran Odt 4 mg (*)] 4 mg PO Q4H PRN 09/24/16 [Last Taken Unknown] Sennosides/Docusate Sodium [Senna-Docusate Sodium Tablet] 1 each PO Q12H PRN 08/08 [Last Taken Unknown] Acetaminophen [Tylenol 325mg (*)] 650 mg PO Q4HRS PRN #0 tab 09/27/16 [Last Taken Unknown] Folic Acid [Folic Acid 1 MG (*)] 1 mg PO DAILY tab 09/27/16 [Last Taken Unknown ] Multivit/Mineral/Ferr Gluc [Cerovite Liquid (*)] 15 ml PO DAILY udl 09/27/16 [ Last Taken Unknown] Pantoprazole Sodium [Protonix 40mg (*)] 40 mg PO BID #28 tab 09/27/16 [Last Taken Unknown] Patch Removal 1 ea TD DAILY21 patch 09/27/16 [Last Taken Unknown] Polyethylene Glycol 3350 [Miralax 17 gm (*)] 17 gm PO DAILY PRN #0 pkt 09/27/16 [Last Taken Unknown] Sennosides/Docusate Sodium [Senokot-S] 1 - 2 tab PO BID tab 09/27/16 [Last Taken Unknown] Thiamine HCl [Vitamin B-1] 100 mg PO DAILY tab 09/27/16 [Last Taken Unknown] oxyCODONE IR [Oxycodone Ir (*)] 5 - 10 mg PO Q3HRS PRN #0 tab 09/27/16 [Last Taken Unknown] Discharge Medications: Refer to the Discharge Home Medication list for PRN reason. - Orders Services needed: Physical Therapy, Occupational Therapy Diet Texture: Thin Liquids, Meds Crushed in Puree Weigh Patient: daily Equipment: were jewitt brace while oob for T 12 compression fx Additional: take protonix bid/ talk with Gastroenterology for length of time. Will need outpatient dilation for esophageal stricture in 2 weeks. Recommend a calorie count. - Labs/Radiology CMP Date: 10/01/16 HCT/HGB Date: 10/01/16 LFT Date: 10/01/16 - Follow Up Care Current Providers and Referrals: Patient,NotPresent [Unknown] - As per Instructions Pascual Loya MD [Medical Doctor] -
[2016-09-27] MEDS ORDERED: POTASSIUM CL 10 MEQ TAB PO ONE (10:26)
--- NOTE | 2016-09-27 11:06 | GDS ---
[f rep st] DISCHARGE SUMMARY DISCHARGE DIAGNOSES: 1. Acute encephalopathy. 2. Nausea and vomiting. 3. Anemia with associated hematemesis. 4. Dysphagia related to an esophageal stricture. 5. Gait instability with a fall 2 weeks ago. 6. Elevated MCV. 7. Elevated liver enzymes. 8. Left-sided weakness noted on admit. 9. Left forearm pain. 10. Subacute T12 compression fracture. 11. Gait instability. 12. Hypokalemia. 13. Diastolic dysfunction/valvular heart disease. CONSULTATIONS: 1. Regino Rick DO, with neurology. 2. Pascual Loya MD, with gastroenterology services. BRIEF HISTORY: The patient is an 81-year-old woman who had several days of nausea and vomiting. She is currently residing at [facility] and developed an episode of hematemesis. On admission, she was noted to be confused. Much of her data was collected from her daughters. Approximately 2 weeks ago, she was bringing out the trash to the garage and was weak and fell and was unable to get up. Apparently, she was on the ground for approximately 2 days. She was [facility], where she was worked up for weakness found to have a subacute thoracic compression fracture. She was seen and evaluated by Neurosurgery and was treated [facility]. Also, she was noted to have a urinary tract infection and was treated with antibiotics. She was discharged to [facility] after being treated at [facility]. She was brought to [facility] for further evaluation of her nausea and vomiting. She had never done well with pills, and was having difficulty taking her medications. She also was complaining of significant left-sided weakness. On admission, a brain MRI was performed that showed atrophy as well as extensive white matter T2 hyperintensity, presumably small vessel gliosis. There was concern for subacute focus of restricted diffusion involving the posterior limb of the right internal capsule. She was seen and evaluated by Dr. Rick, who noted that she did not have a stroke. He noted that her left arm and left leg weakness was secondary to pain. Also, during her stay she was complaining of difficulty with swallowing and was not wanting to eat. She was seen and evaluated by the hydrotreater operator, who noted that she had an esophageal stricture. It was dilated. He also evaluated her etiology of anemia. The EGD showed distal esophageal ulceration. Today, she will be discharged back to [facility]. I am concerned that she is not eating much. I have recommended that they do a calorie count and monitor this closely. HOSPITAL COURSE: 1. Encephalopathy. This has resolved. She is alert and oriented. 2. Nausea and vomiting. None further. 3. Anemia/hematemesis. She will be on a PPI b.i.d. EGD performed showed a distal esophageal ulcer. 4. Esophageal stricture. She is status post dilation. Dr. Loya is recommending that she get a repeat EGD in 1-2 weeks. 5. Gait instability with a fall 2 weeks ago. She has had difficulty with getting out of bed here at the hospital. She will need PT and OT for a period of time to help strengthen her. 6. Elevated MCV. Patient states that she does not feel she drinks much alcohol. She did not have any signs or symptoms of withdrawal but she had significant episodes of confusion. 7. Elevated LFTs. Will get these repeated at the [facility] facility. 8. Left-sided weakness. MRI showed no acute stroke. 9. Left arm pain. An x-ray was performed, which showed nothing acute. 10. Subacute T12 compression fracture. She was evaluated by Neurosurgery at [facility]. She is to wear a [place] brace when getting out of bed. 11. Gait instability. Working with PT and OT. 12. Hypokalemia. Resolved. 13. Diastolic dysfunction, valvular heart disease. No decompensation is noted. CONDITION AT DISCHARGE: Stable. Blood pressure is 104/56, heart rate is 94, respiratory rate is 16, O2 sats on room air 91%, temperature is 36.6 Celsius. MEDICATIONS AT DISCHARGE: Please see the EMR. DISCHARGE INSTRUCTIONS: 1. She will need to follow up with Dr. Loya for evaluation of her esophageal stricture. To have follow up in 1-2 weeks. 2. She will need physical therapy, occupational therapy, as well as wound care. Greater than 30 minutes discharging and coordinating care. /[id number]/MODL MTDD
== END 2016-09-27 13:22 | DRG 380 ==
LOC: EDUNIT# → OBSVTOIN 14:36 → F3E 14:37
PROVIDERS: ADMIT Internal Medicine; ATTEND Internal Medicine
DX: K22.11 Ulcer of esophagus with bleeding (principal); K22.2 Esophageal obstruction; D62 Acute posthemorrhagic anemia; R26.89 Other abnormalities of gait and mobility; Z91.81 History of falling; S22.080D Wedge compression fracture of T11-T12 vertebra, subsequent encounter for fracture with routine healing; R53.1 Weakness; G89.11 Acute pain due to trauma; G93.40 Encephalopathy, unspecified; E87.6 Hypokalemia; L89.151 Pressure ulcer of sacral region, stage 1; K44.9 Diaphragmatic hernia without obstruction or gangrene
CPT/HCPCS: 92610-GN; 97116-GP; 97161-GP; 97530-GP; C1726; G8978-GP-CL; G8979-GP-CJ; G8979-GP-CK; G8980-GP-CJ; G8996-GN-CI; G8997-GN-CI; G8998-GN-CI; J1100; J2704

== ENCOUNTER 2016-10-31 11:29 | Inpatient (IN) | payer OTHER ==
--- NOTE | 2016-10-31 12:39 | EDPHY ---
H & P Time Seen by Provider: 10/31/16 11:54 HPI/ROS: CHIEF COMPLAINT: Failure to thrive, severe back pain HISTORY OF PRESENT ILLNESS: 81-year-old female presents to the emergency department by ambulance with her daughter with complaints of severe back pain. The patient fell in August of 2016 and had a L3 compression fracture and was seen at initially at [facility] and was transferred to [facility]. She was there only for a week because apparently she was not participating in physical therapy. She was discharged home and home health has been arranged. She has 24 hour home health care. The patient however over the last week or more has had significant decline where she is unable to walk. She developed severe pain in her feet and in her back with standing up. The patient feels very weak. She has very little appetite. She was complaining of some difficulty breathing specially when she was doing physical therapy. She denies pain in her chest. Denies abdominal pain or vomiting. Denies diarrhea. She had a normal bowel movement yesterday. No urinary symptoms. Patient states that she has been her urinating normally. She ate very little today. Her daughter is concerned because she has had significant decline over last several days not wanting to get out of bed. She has not been eating much. She now has swelling in her lower legs as well as in her left elbow. No other new reported trauma other than the fall as reported August 2016. REVIEW OF SYSTEMS: Constitutional: No fever, no chills. Eyes: No double or blurry vision. ENT: No sore throat. Respiratory: No cough, no shortness of breath. Cardiac: No chest pain. Gastrointestinal: No abdominal pain, vomiting or diarrhea. Genitourinary: No dysuria. Musculoskeletal: Severe back pain as above. No neck pain. Skin: No rashes. Neurological: No headache. Past Medical/Surgical History: Fall August 2016 resulting in L3 compression fracture, osteoarthritis, anemia, chronic pain, macular degeneration, urinary tract infections Social History: and lives in [place] Smoking Status: Former smoker Physical Exam: General Appearance: Alert, no distress. Eyes: Pupils equal and round. Extraocular motions are all intact. ENT: Mouth: Mucous membranes dry Respiratory: No wheezing, rhonchi, or rales, lungs are clear to auscultation. Cardiovascular: Regular rate and rhythm. Gastrointestinal: Abdomen is soft and nontender, no masses, no rebound or guarding, bowel sounds normal. Neurological: Alert and oriented x 3, cranial nerves II through XII grossly intact Skin: Warm and dry, no rashes. Musculoskeletal: Nontender to palpate along the cervical, neck supple. Unable to sit patient up due to pain in back. Extremities: Full range of motion and no peripheral edema. Psychiatric: Patient is oriented X 3, there is no agitation. Constitutional: Initial Vital Signs Temperature (C) 36.6 C 10/31/16 11:47 Heart Rate 105 H 10/31/16 11:47 Respiratory Rate 16 10/31/16 11:47 Blood Pressure 126/72 H 10/31/16 11:47 O2 Sat (%) 93 10/31/16 11:47 O2 Delivery Mode Room Air Allergies/Adverse Reactions: No Known Allergies Allergy (Unverified 09/24/16 11:38) Home Medications: Medication Instructions Recorded Acetaminophen [Tylenol 325mg (*)] 650 mg PO Q4HRS PRN #0 tab 09/27/16 Pantoprazole Sodium [Protonix 40mg 40 mg PO BID #28 tab 09/27/16 (*)] oxyCODONE IR [Oxycodone Ir (*)] 5 - 10 mg PO Q3HRS PRN #0 tab 09/27/16 Gabapentin [Neurontin Oral Liquid 3 ml PO HS 10/31/16 (RX)] MIRTAZAPINE [Remeron 7.5 mg] 7.5 mg PO HS 10/31/16 morphINE [Roxanol 10 mg/0.5 ml 5 mg PO AD 10/31/16 oral soln (*)] Medical Decision Making - Diagnostics Imaging Results: Imaging Impressions Chest X-Ray 10/31/16 12:30 Impression: Bilateral pleural effusions (left greater than right), with right basilar diskoid subsegmental atelectasis and left medial basilar compressive atelectasis versus infiltrate not excluded. Imaging: I viewed and interpreted images myself ED Course/Re-evaluation: 81-year-old female presents to the emergency department with her daughter with failure to thrive. Patient is afebrile and nontoxic-appearing. She has significant pain in her back which is chronic from her fall in August of 2016. Lumbar spine films were ordered which revealed multilevel degenerative changes and multilevel compression deformities. She had a known L3 compression deformity. Patient has severe osteoporosis. Patient will be admitted to the hospitalist with failure to thrive and severe back pain. Chest x-ray reveals bilateral pleural effusion worse on the left side. BNP was negative. Troponin was negative. Patient is chronically anemic. Patient's vital signs remained stable throughout her stay in the emergency department. Differential Diagnosis: Shortness of breath including but not limited to pulmonary infectious process, COPD, asthma, pulmonary embolus and congestive heart failure. Weakness including but not limited to electrolyte abnormality, depression, anxiety, CVA, spinal cord abnormality, and infectious causes. - Data Points Laboratory Results: Laboratory Results 10/31/16 13:00 10/31/16 13:00 10/31/16 10/31/16 10/31/16 13:00 13:00 13:00 WBC RBC Hgb Hct MCV MCH MCHC RDW Plt Count MPV Neut % (Auto) Lymph % (Auto) [place] % (Auto) Eos % (Auto) Baso % (Auto) Nucleat RBC Rel Count Absolute Neuts (auto) Absolute Lymphs (auto) Absolute Monos (auto) Absolute Eos (auto) Absolute Basos (auto) Absolute Nucleated RBC Immature Gran % Immature Gran # PT 16.6 SEC H SEC (12.0-15.0) INR 1.34 H (0.83-1.16) APTT 34.9 SEC SEC (23.0-38.0) Sodium Potassium Chloride Carbon Dioxide Anion Gap BUN Creatinine Estimated GFR Glucose Calcium Total Bilirubin 2.1 mg/dL H mg/dL (0.1-1.4) Conjugated Bilirubin 0.6 mg/dL H mg/dL (0.0-0.5) Unconjugated Bilirubin 1.5 mg/dL H mg/dL (0.0-1.1) AST 46 IU/L IU/L (14-46) ALT 35 IU/L IU/L (9-52) Alkaline Phosphatase 126 IU/L IU/L (38-126) Troponin I NT-Pro-B Natriuret Pep 290 pg/mL pg/mL (0-450) Total Protein 6.7 g/dL g/dL (6.3-8.2) Albumin 2.3 g/dL L g/dL (3.5-5.0) 10/31/16 10/31/16 13:00 13:00 WBC 6.71 10^3/uL 10^3/uL (3.80-9.50) RBC 3.50 10^6/uL L 10^6/uL (4.18-5.33) Hgb 11.8 g/dL L g/dL (12.6-16.3) Hct 35.7 % L % (38.0-47.0) MCV 102.0 fL H fL (81.5-99.8) MCH 33.7 pg pg (27.9-34.1) MCHC 33.1 g/dL g/dL (32.4-36.7) RDW 13.7 % % (11.5-15.2) Plt Count 212 10^3/uL 10^3/uL (150-400) MPV 10.1 fL fL (8.7-11.7) Neut % (Auto) 68.4 % % (39.3-74.2) Lymph % (Auto) 22.4 % % (15.0-45.0) [place] % (Auto) 6.1 % % (4.5-13.0) Eos % (Auto) 2.1 % % (0.6-7.6) Baso % (Auto) 0.6 % % (0.3-1.7) Nucleat RBC Rel Count 0.0 % % (0.0-0.2) Absolute Neuts (auto) 4.59 10^3/uL 10^3/uL (1.70-6.50) Absolute Lymphs (auto) 1.50 10^3/uL 10^3/uL (1.00-3.00) Absolute Monos (auto) 0.41 10^3/uL 10^3/uL (0.30-0.80) Absolute Eos (auto) 0.14 10^3/uL 10^3/uL (0.03-0.40) Absolute Basos (auto) 0.04 10^3/uL 10^3/uL (0.02-0.10) Absolute Nucleated RBC 0.00 10^3/uL 10^3/uL (0-0.01) Immature Gran % 0.4 % % (0.0-1.1) Immature Gran # 0.03 10^3/uL 10^3/uL (0.00-0.10) PT INR APTT Sodium 133 mEq/L L mEq/L (134-144) Potassium 3.7 mEq/L mEq/L (3.5-5.2) Chloride 101 mEq/L mEq/L (97-110) Carbon Dioxide 24 mEq/l mEq/l (22-31) Anion Gap 8 mEq/L mEq/L (8-16) BUN 11 mg/dL mg/dL (7-23) Creatinine 0.6 mg/dL mg/dL (0.6-1.0) Estimated GFR > 60 Glucose 89 mg/dL mg/dL (70-100) Calcium 8.3 mg/dL L mg/dL (8.5-10.4) Total Bilirubin Conjugated Bilirubin Unconjugated Bilirubin AST ALT Alkaline Phosphatase Troponin I < 0.012 ng/mL ng/mL (0-0.034) NT-Pro-B Natriuret Pep Total Protein Albumin Departure - Departure Disposition: [facility] Inpatient Acute Clinical Impression: Severe low back pain Compression fracture of spine Qualifiers: Encounter type: initial encounter Qualified Code(s): M48.50XA - Collapsed vertebra, not elsewhere classified, site unspecified, initial encounter for fracture Failure to thrive Qualifiers: Failure to thrive age range: in adult Qualified Code(s): R62.7 - Adult failure to thrive Condition: Good
--- NOTE | 2016-10-31 12:55 | CPEKG ---
Heart Rate: 102 RR Interval: 588 P-R Interval: 152 QRSD Interval: 74 QT Interval: 320 QTC Interval: 417 P Hixson: 0 QRS Hixson: -10 T Wave Hixson: 179 EKG Severity - ABNORMAL ECG - EKG Impression: SINUS TACHYCARDIA EKG Impression: PROBABLE INFERIOR INFARCT, AGE INDETERMINATE EKG Impression: LATERAL LEADS ARE ALSO INVOLVED Electronically Signed By: Faheem Mack 31-Oct-2016 13:56:46
[2016-10-31 13:10] LABS: % IMMATURE GRANULYOCYTES 0.4 % (0.0-1.1); ABSOLUTE IMMATURE GRANULOCYTES 0.03 10^3/uL (0.00-0.10); ADD DIFF? NO; ADD MORPH? NO; ADD SCAN? NO; ATYPICAL LYMPHOCYTE FLAG 20 (0-99); FRAGMENT RBC FLAG 0 (0-99); HEMATOCRIT 35.7 % (38.0-47.0); HEMOGLOBIN 11.8 g/dL (12.6-16.3); LEFT SHIFT FLG 0 (0-99); LIPEMIA HEMOLYSIS FLAG 80 (0-99); MEAN CELL HEMOGLOBIN 33.7 pg (27.9-34.1); MEAN CELL HEMOGLOBIN CONCENTR. 33.1 g/dL (32.4-36.7); MEAN PLATELET VOLUME 10.1 fL (8.7-11.7); PLATELET CLUMPS FLAG 0 (0-99); PLATELET COUNT 212 10^3/uL (150-400); RED CELL DISTRIBUTION WIDTH 13.7 % (11.5-15.2)
[2016-10-31 13:22] LABS: ANION GAP 8 mEq/L (8-16); CALCIUM 8.3 mg/dL (8.5-10.4); CARBON DIOXIDE 24 mEq/l (22-31); CHLORIDE 101 mEq/L (97-110); CREATININE 0.6 mg/dL (0.6-1.0); GLOMERULAR FILTRATION RATE > 60; GLUCOSE 89 mg/dL (70-100); POTASSIUM 3.7 mEq/L (3.5-5.2); SODIUM 133 mEq/L (134-144)
[2016-10-31 13:34] LABS: TROPONIN I < 0.012 ng/mL (0-0.034)
[2016-10-31] MEDS ORDERED: ACETAMINOPHEN 325 MG TAB PO PRN (14:07)
[2016-10-31] MEDS ORDERED: ONDANSETRON 4 MG/2 ML VIAL IVP PRN (14:07)
[2016-10-31] MEDS ORDERED: ONDANSETRON DISINTEGRATING 4 MG TAB PO PRN (14:07)
[2016-10-31 14:19] LABS: ALBUMIN 2.3 g/dL (3.5-5.0); BILIRUBIN,TOTAL 2.1 mg/dL (0.1-1.4); BILIRUBIN-CONJUGATED 0.6 mg/dL (0.0-0.5); BILIRUBIN-UNCONJUGATED 1.5 mg/dL (0.0-1.1); TOTAL PROTEIN 6.7 g/dL (6.3-8.2)
[2016-10-31 14:28] LABS: INR 1.34 (0.83-1.16); PROTIME(PATIENT) 16.6 SEC (12.0-15.0)
[2016-10-31 14:29] LABS: APTT 34.9 SEC (23.0-38.0)
--- NOTE | 2016-10-31 15:00 | GHP ---
[f rep st] HISTORY AND PHYSICAL DATE OF ADMISSION: 10/31/2016 CHIEF COMPLAINT: Failure to thrive. Severe back pain. HISTORY OF PRESENT ILLNESS: History was obtained from both the patient and her daughter. An 81-year-old female, presenting from home with her daughter, with complaints of severe back pain. Fell September 14 and had an L3 compression fracture. Was discharged to [facility] [place]. However, the patient could not participate in physical therapy, so self-discharged herself. Since being home, she has had 24 care. She has had a significant decline over the past week, where she has not been able to walk and unable to get out of bed. c/o severe pain in her right foot that shoots up to her back, as well as severe pain in her left arm and elbow. Elbows have been swollen and leaking clear fluid.Denies fevers, chills, or sweats. No abdominal pain or vomiting. Has had intermittent nausea. Had normal bowel movement yesterday. Per daughter, she has been eating and drinking very little. She does have a significant alcohol history. Was drinking up until the fall in August. The patient also endorses abdominal distention. Intermittent shortness of breath, per daughter, but denies any chest pain. REVIEW OF SYSTEMS: I completed a 10-point review of systems, negative except as noted in HPI. PAST MEDICAL HISTORY: 1. L3 compression fracture, status post fall in August 2016. 2. Esophageal stricture, status post dilatation. 3. T12 compression fracture. 4. Diastolic heart failure. 5. Hematemesis, September 2016, with a distal esophageal ulcer. 6. Macular degeneration. PAST SURGICAL HISTORY: None. SOCIAL HISTORY: Lives in [place]. Has 24/7 care. No tobacco or illicits. She was a heavy drinker up until this past August. FAMILY HISTORY: Mother with a CVA. Father: No medical conditions. ALLERGIES: No known drug allergies. MEDICATIONS: Oxycodone 5 to 10 q.3 p.r.n., morphine 5 mg, Protonix 40 mg b.i.d. , mirtazapine 7.5, gabapentin 3 mL q.h.s., Tylenol as needed. PHYSICAL EXAMINATION: VITAL SIGNS: Temperature 36.6, blood pressure 126/72, heart rate 102, respirations 16. 93% on room air. GENERAL: The patient is chronically ill appearing, comfortable in bed. HEENT: KATE. EOMI. Mildly dry mucous membranes. CV: Tachy but regular. No murmur, gallops, or rubs. LUNGS: The patient will not sit up for lung exam. ABDOMEN: Mildly distended but nontender. Positive bowel sounds throughout. No suprapubic tenderness. MUSCULOSKELETAL: Generalized weakness. She has bilateral elbows draining clear fluid. Has full range of motion. No erythema or pain over the joint. + 2 lower extremity edema. SKIN: Warm, very dry, flaking over arms and legs. NEURO: 2 through 12 intact. PSYCH: She is alert and oriented to place, month , date but not year, said it was 1916. No asterixis. LABS: Sodium 133, potassium 3.7, chloride 101, carbon dioxide 24, creatinine 0.6, calcium 8.3. Troponin less than 0.012. BNP is 290. EKG, personally reviewed by me: Tachycardia, ST flattening diffusely, T-wave inversion in V2. No old to compare. Chest x-ray, personally reviewed by me: Bilateral pleural effusions, left greater than right. ASSESSMENT AND PLAN: 1. Acute on chronic pain: Secondary to L3 compression fracture in August. It sounds like the patient has not been participating in physical therapy. Repeat x-ray is pending. We will continue home medication. PT, OT. Discuss case with NSGY. 2. Anasarca: Patient with abdominal distention and pleural effusions. BNP is negative as well as a troponin. Check a UA for protein and LFTs. Suspect possible cirrhosis, given significant alcohol history. We will obtain outside records. Daughter states that she had an ultrasound there. 3. Weakness: Likely multifactorial with compression fracture, decreased p.o. intake. We will hydrate gently here. 4. Pleural effusions: Differential includes cardiac versus nephrotic syndrome versus cirrhosis. Again, BNP is negative. EKG is negative for ischemia. Do not have an old to compare to. We will obtain outside records. We will consider an echocardiogram to evaluate for possible right heart failure. 5. Diet: Regular. 6. Deep venous thrombosis prophylaxis: Lovenox. DISPOSITION: The patient warrants inpatient admission, given acute on chronic back pain, weakness, and failure to thrive. We will continue gentle IV fluid. Awaiting LFTs and outside records. /[id number]/MODL MTDD
[2016-10-31 19:19] LABS: COLOR AMBER; LEUKOCYTE ESTERASE,URINE NEGATIVE (NEGATIVE); NITRITE,URINE NEGATIVE (NEGATIVE)
[2016-10-31 19:22] LABS: BACTERIA 1+ /hpf (NONE SEEN); MUCUS 4+ /lpf (NONE-1+)
[2016-10-31] MEDS ORDERED: MIRTAZAPINE 7.5 MG PO SCH (21:00)
[2016-10-31] MEDS ORDERED: GABAPENTIN 250 MG/5 ML 30 ML BOTTLE PO SCH (21:00)
[2016-10-31] MEDS: PANTOPRAZOLE SODIUM 40 MG TAB PO SCH (21:12)
[2016-10-31] MEDS: GABAPENTIN 250 MG/5 ML 30 ML BOTTLE PO SCH (21:12)
[2016-10-31] MEDS: MIRTAZAPINE 15 MG TAB PO SCH (21:12)
--- NOTE | 2016-10-31 22:23 | WOCRNPDOC ---
AMBER Advanced Assessment Note - Skin Integrity Problem, Advanced Assess Left Breast Dressing Type: Open to Air Exudate Amount: None Integumentary Issue Intervention: Lotion/Cream Applied (Skin Repair) Deborah Wound Tissue: Xerotic Deborah Wound Swelling: None Wound Bed Constitution: Healed Site Odor: None Skin Integrity Problem Comment: Dry, flaking skin in distal breast folds. Skin Repair cream applied. Sacrum Pressure Injury Dressing Type: Open to Air Exudate Amount: None Deborah Wound Tissue: Erythema, Non-blanching, Thin, Dry, Scarred Wound Bed Constitution: Healed Site Odor: None Site Measurement - Head-to-Toe Length X Width X Depth (cm): Diffuse across sacrum, encompassing coccyx Pressure Injury Present on Admit: Yes (see comment below) Skin Integrity Problem Comment: Intact re-epithelialed scar tissue present at coccyx and sacrum, currently presenting with appearance resembling a stage 1 injury and consistnet with that of potentially a resurfaced pressure injury of unknown (to this senior copywriter) depth, prior to present assessment. Patient cannot provide a history at this time, stating, "I'm not sure." Staff to initiate skin care and protective dressing.
[2016-10-31] MEDS: oxyCODONE IR 5 MG TAB PO PRN (23:13)
[2016-11-01 05:59] LABS: ALANINE AMINOTRANSFERASE 33 IU/L (9-52); ALKALINE PHOSPHATASE 120 IU/L (38-126); ANION GAP 5 mEq/L (8-16); ASPARTATE AMINOTRANSFERASE 46 IU/L (14-46); BILIRUBIN,TOTAL 1.6 mg/dL (0.1-1.4); CALCIUM 8.2 mg/dL (8.5-10.4); CARBON DIOXIDE 23 mEq/l (22-31); CHLORIDE 103 mEq/L (97-110); CREATININE 0.5 mg/dL (0.6-1.0); GLOMERULAR FILTRATION RATE > 60; GLUCOSE 92 mg/dL (70-100); POTASSIUM 3.5 mEq/L (3.5-5.2); SODIUM 131 mEq/L (134-144)
[2016-11-01] MEDS: PANTOPRAZOLE SODIUM 40 MG TAB PO SCH ×2 (07:19→20:36)
[2016-11-01] MEDS: ENOXAPARIN 40 MG/0.4 ML SYR SC SCH (07:21)
--- NOTE | 2016-11-01 09:11 | HOSPPROG ---
Hospitalist Progress Note Assessment/Plan: Obtained outside records from [facility], personally reviewed. #Acute on chronic back pain: chronic T12, L1-2 compression fxs. Acute L3 endplate (August). MRI with T10-12 acute vs. subacute fx, will mild central stenosis #Dyspnea/volume overload: TTE 09/08 shows grade 2 diastolic dysfunction, moderate , normal LV/RV. Recent abd U/S with fatty infiltration. Albumin low. Awaiting urine lytes to better determine fluid status #Abd distension: U/S in August showed echogenic debris, query GB disease. Consider CT #Hypovolemic hyponatremia: mild. urine lytes ppending #LE swelling: been immobile for weeks. Old clot in right femoral vein #Hyperbilirubinemia: #Macrocytic anemia: 2/2 Etoh #h/o Etoh abuse: none since fall in August #Moderate protein caloric malnutrition: dietary consult #Diet: regular #DVT ppx: Lovenox #Depression: was on Remeron 15mg, but decreased by LOCATION ANALYST "bc not working". Had only been on for few weeks. Would cont as may be contributing to overall pain #Goals: has Palliative care at home. Emphasized that she determines her treatment plans. Explained comfort care. Total time spent on visit: 45 min in which 35 min counseling pt and daughter on MRI findings, goals. Remaining time d/w NSGY. Subjective: feeling down. Back pain during MRI Objective: Vital Signs Temp Pulse Resp BP Pulse Ox 36.7 C 101 H 14 101/51 L 92 11/01/16 07:50 11/01/16 07:50 11/01/16 07:50 11/01/16 07:50 11/01/16 07:50 Laboratory Results 11/01/16 05:10 10/31/16 11/01/16 11/02/16 05:59 05:59 05:59 Output Total 350 Balance -350 PT 16.6 SEC (12.0-15.0) H 10/31/16 13:00 INR 1.34 (0.83-1.16) H 10/31/16 13:00 - Physical Exam Constitutional: chronically ill appearing, cachectic Eyes: PERRL Ears, Nose, Mouth, Throat: hearing normal, dry mucous membranes Cardiovascular: regular rate and rhythym, systolic murmur, edema (+3 LE edema) Respiratory: other (decreased BS at both bases) Gastrointestinal: normoactive bowel sounds, distension (mild distension, no TTP , +BS) Genitourinary: no bladder fullness, no bladder tenderness Skin: warm, pressure ulcer (stage 1 coccyx. Present on coccyx) Musculoskeletal: generalized weakness, other (elbows with blister with clear fluid. ROM, no redness or warmth. No bony TTP over spine) Neurologic: AAOx3, CN II-XII Intact Psychiatric: interacting appropriately, depressed, flat affect ICD10 Worksheet Patient Problems: Problems Problem Status Onset Compression fracture of spine Acute Failure to thrive Acute Severe low back pain Acute Upper GI bleed Acute
[2016-11-01] MEDS ORDERED: FUROSEMIDE 20 MG/2 ML VIAL IVP ONE (14:07)
[2016-11-01] MEDS: NS 1,000 ML IV SCH (17:47)
[2016-11-01] MEDS: MIRTAZAPINE 15 MG TAB PO SCH (20:36)
[2016-11-01] MEDS: GABAPENTIN 250 MG/5 ML 30 ML BOTTLE PO SCH (20:36)
[2016-11-02] MEDS: NS 1,000 ML IV SCH (05:08)
[2016-11-02 05:44] LABS: ANION GAP 3 mEq/L (8-16); CARBON DIOXIDE 22 mEq/l (22-31); CHLORIDE 106 mEq/L (97-110); CREATININE 0.6 mg/dL (0.6-1.0); GLOMERULAR FILTRATION RATE > 60; GLUCOSE 78 mg/dL (70-100); SODIUM 131 mEq/L (134-144)
[2016-11-02 06:16] LABS: POTASSIUM 3.3 mEq/L (3.5-5.2)
[2016-11-02] MEDS ORDERED: POTASSIUM CL 20 MEQ TAB PO ONE (06:23)
[2016-11-02] MEDS: PANTOPRAZOLE SODIUM 40 MG TAB PO SCH ×3 (08:39→23:11)
[2016-11-02] MEDS: ENOXAPARIN 40 MG/0.4 ML SYR SC SCH (09:04)
--- NOTE | 2016-11-02 14:01 | HOSPPROG ---
Hospitalist Progress Note Assessment/Plan: #Weakness: UTI contributing. Compression fxs not contributing to sxs -check TSH, PT/OT #UTI: >100k gram neg srinivasa. Day 1 ceftriaxone #Acute on chronic back pain: T10-T12 subacute vs. acute compression fx with canal stenosos T10-11. Apprecuate NSGY consult. No intervention and does not need brace #Volume overload with LE edema, pleural effusions: multifactorial. TTE 09/08: grade 2 diastolic dysfunction, mild , normal LV/RV. Hypoalbuminema. -Urine Na <5, so gave back small amount NS, but 3rd-spacing. Trial Lasix with albumin #Abd distension: U/S in August showed echogenic debris, query GB disease. Consider CT #Hypovolemic hyponatremia: mild. #LE swelling: been immobile for weeks. Old clot in right femoral vein. #Hyperbilirubinemia: US from OSH showed fatty infiltration, GB debris. Consider CT if abd pain #Macrocytic anemia: 2/2 Etoh #h/o Etoh abuse: none since fall in August #Moderate protein caloric malnutrition: dietary consult #Depression: cont Remeron #Diet: regular #DVT ppx: Lovenox #Goals: has Palliative care at home. Emphasized that she determines her treatment plans. Explained comfort care. #Disp: DC to SNF once ambulating better with decreased edema Subjective: legs more swollen today, julio after sitting in chair. elbow swelling nearly resolved Objective: Vital Signs Temp Pulse Resp BP Pulse Ox 36.3 C 116 H 16 113/68 94 11/02/16 11:32 11/02/16 11:32 11/02/16 11:32 11/02/16 11:32 11/02/16 11:32 Laboratory Results 11/02/16 05:14 11/01/16 11/02/16 11/03/16 05:59 05:59 05:59 Intake Total 50 Output Total 350 100 Balance -350 -50 PT 16.6 SEC (12.0-15.0) H 10/31/16 13:00 INR 1.34 (0.83-1.16) H 10/31/16 13:00 - Time Spent With Patient Time Spent with Patient: greater than 35 minutes (time spent counseling daughters on tx plan and SNF) Time Spent with Patient: Greater than 35 minutes spent on this patients care, greater than 50% of time spent counseling, educating, and coordinating care regarding the above mentioned plan. - Physical Exam Constitutional: no apparent distress, chronically ill appearing, other (appears brighter today) Eyes: PERRL Ears, Nose, Mouth, Throat: moist mucous membranes Cardiovascular: regular rate and rhythym, systolic murmur, edema (+3 LE pitting edema. Edema over arms, elbows improved) Respiratory: no respiratory distress Gastrointestinal: normoactive bowel sounds, soft, non-tender abdomen Genitourinary: no bladder fullness, no bladder tenderness Skin: other (multiple ecchymoses over arms and legs, dry ) Musculoskeletal: generalized weakness Neurologic: AAOx3, CN II-XII Intact Psychiatric: interacting appropriately, depressed, flat affect ICD10 Worksheet Patient Problems: Problems Problem Status Onset Compression fracture of spine Acute Failure to thrive Acute Severe low back pain Acute Upper GI bleed Acute
[2016-11-02] MEDS ORDERED: ALBUMIN 25% 100 ML IV ONE (15:14)
--- NOTE | 2016-11-02 15:55 | GCON ---
Seen and examined agree with above [f rep st] CONSULTATION NEUROSURGICAL CONSULTATION DATE OF CONSULTATION: 11/02/2016 CHIEF COMPLAINT: Failure to thrive and back pain. HISTORY OF PRESENT ILLNESS: The patient is a pleasant 81-year-old female, who was admitted to the hospitalist service recently for failure to thrive. Neurosurgical consult was requested due to a history of previous back fractures and the patient's complaint of back pain yesterday. Approximately 5 weeks ago, the patient states that she fell at home while taking out the trash, and was not found for 2 days. She was then seen in [facility], and underwent imaging studies demonstrating some acute thoracic and lumbar fractures, and was treated with a [place] brace, but did not tolerate the brace. The patient was then sent to rehab and was diagnosed with a GI bleed, and subsequently readmitted to the hospital, and then discharged, and then recently again readmitted currently for malnourishment, failure to thrive, and dehydration. Currently, the patient is not really complaining of any back pain, though she does report some mild pain from her shoulders up. She has entire body hyperesthesias, but no numbness or tingling of the upper or lower extremities. She was fitted with a [place] brace yesterday as well after undergoing thoracic and lumbar imaging studies demonstrating subacute compression fractures at multiple levels, but could not tolerate the [place] brace. Currently, she has no focal neurologic deficits. REVIEW OF SYSTEMS: A 10-point review of systems was reviewed, and the patient has generalized malaise body hyperesthesias, swelling in the bilateral upper and lower extremities, neck pain, depression. PAST MEDICAL HISTORY: 1. Prior L3 compression fracture, status post fall in August 2016. 2. Esophageal stricture, status post dilatation. 3. Multiple subacute compression fractures of thoracic and lumbar spine. 4. Diastolic heart failure. 5. Hematemesis in September of 2016 with distal esophageal ulcer. 6. Macular degeneration. PAST SURGICAL HISTORY: None. FAMILY HISTORY: Mother with a CVA. Father no medical conditions. ALLERGIES: No known drug allergies. CURRENT MEDICATIONS: Oxycodone 5 mg q.3 p.r.n., morphine 5 mg, Protonix 40 mg b.i.d., mirtazapine 7.5 mg, gabapentin, and Tylenol p.r.n. LABORATORY DATA: MRI of the thoracic spine on 11/01/2016 demonstrates mild to moderate compression fractures of T10, T11 and 12, which appears subacute versus subacute at T10 and T12, probably old at the T11 vertebral body. There is minimal central canal stenosis and retrolisthesis at these levels. MRI of the lumbar spine demonstrates L1 mild compression fracture likely chronic , L2 mild compression fracture, L3 mild compression fracture which is likely subacute, without retropulsion. PHYSICAL EXAM: GENERAL: Tired appearing 81-year-old female, in no apparent distress. HEAD, EARS, NOSE, THROAT: Within normal limits. NECK, THORACIC, LUMBAR SPINE: Nontender to palpation and percussion. She has exquisite hypersensitivity of the bilateral upper extremities, even to light touch, as well as the lower extremities. Her lower extremities are significantly edematous with ulcerations and decreased range of motion of her feet bilaterally secondary to pain and swelling. ABDOMEN: Soft, nontender, nondistended. NEUROLOGIC: The patient is awake, alert, oriented x4. She is following commands. Her speech is clear. She has equal and symmetric strength of the bilateral upper extremities the inspector fuel hose, biceps, triceps, and deltoid, and equal strength of bilateral iliopsoas, and she is antigravity of her bilateral dorsiflexors, but is too tender to the touch of her feet to undergo any further testing. Sensation is hyperesthetic in the lower extremities as well. Reflexes are hyporeactive in the bilateral brachioradialis, biceps, and patellar tendons. IMPRESSION: This is an 81-year-old female with multiple medical issues, including dehydration, malnourishment, and failure to thrive with a fall approximately 5 weeks ago, which would likely explain her multiple subacute compression fractures. Currently, the patient has minimal back pain and is nontender to palpation, and furthermore is unable to tolerate a [place] brace. Her candidacy for even the smallest of surgeries, which would potentially be a kyphoplasty, would be not indicated given her extremely poor health and frailty. As such, at this time, we recommend conservative treatment modalities , and no surgical intervention, and no bracing in light of her lack of back pain and subacute to chronic compression fractures. All of the above information was discussed with the patient, her 2 daughters, and Dr. Alford, who saw and examined the patient today. /[id number]/MODL MTDD
[2016-11-02] MEDS: FUROSEMIDE 20 MG/2 ML VIAL IVP SCH (16:46)
[2016-11-02 16:50] LABS: MAGNESIUM 1.5 mg/dL (1.6-2.3)
[2016-11-02] MEDS ORDERED: MAGNESIUM SULF 2 GM/WATER 50 ML IV ONE ×3 (17:40→21:30)
[2016-11-02 17:57] LABS: FOLATE SERUM 4.55 ng/mL (2.80 - >20.00)
[2016-11-02] MEDS: GABAPENTIN 250 MG/5 ML 30 ML BOTTLE PO SCH (21:32)
[2016-11-02] MEDS: MIRTAZAPINE 15 MG TAB PO SCH (21:32)
[2016-11-02] MEDS: PANTOPRAZOLE SODIUM 40 MG in NS 100 ML IV SCH (23:11)
[2016-11-03 06:13] LABS: ANION GAP 10 mEq/L (8-16); CALCIUM 8.4 mg/dL (8.5-10.4); CARBON DIOXIDE 20 mEq/l (22-31); CHLORIDE 105 mEq/L (97-110); CREATININE 0.6 mg/dL (0.6-1.0); GLOMERULAR FILTRATION RATE > 60; GLUCOSE 115 mg/dL (70-100); MAGNESIUM 2.3 mg/dL (1.6-2.3); POTASSIUM 2.9 mEq/L (3.5-5.2); SODIUM 135 mEq/L (134-144)
--- NOTE | 2016-11-03 09:37 | WOCRNPDOC ---
AMBER Advanced Assessment Note - Skin Integrity Problem, Advanced Assess Right Foot Blister Dressing Type: Open to Air Exudate Amount: None Exudate Characteristic(s): None Deborah Wound Tissue: Swollen, Lipodermatosclerosis, Hemosiderin Staining, Venous Dermatitis, Xerotic Deborah Wound Swelling: Moderate Wound Bed Color: Purple Wound Bed Constitution: Intact Sanguineous Blister Site Odor: None Site Measurement - Head-to-Toe Length X Width X Depth (cm): 3.8cmx4.5cmx0.8cm ( raised above skin level) Pulse Location & Description: DP +2 bilaterally Skin Integrity Problem Comment: Large, intact sanguinous blister noted on dorsum of R foot, fluctuant at this time. Per patient report, she has blisters to both feet that "come and go" all the time. +2 DP pulse, and +3 non-pitting edema to this extremity. Extensive hemosiderin staining and venous dermatitis observed, indicating long-standing venous insufficiency. Patient denies wearing compression stockings. Will continue to monitor/measure this blister, no immediate intervention necessary. Right Lateral Ankle Blister Dressing Type: Open to Air Exudate Amount: None Exudate Characteristic(s): None Deborah Wound Tissue: Ecchymotic, Hemosiderin Staining, Venous Dermatitis, Xerotic Deborah Wound Swelling: Moderate Wound Bed Constitution: Intact Serous Filled Blister Site Odor: None Site Measurement - Head-to-Toe Length X Width X Depth (cm): 2.2cmx3.2cmx0.4cm ( raised above skin level) Skin Integrity Problem Comment: Intact, fluid-filled blister noted just distal to R lateral malleolus. Patient reports h/o of this type of blister, and says they tend to resolve on their own. Extensive evidence of venous insufficiency in this extremity. Will continue to monitor this site and others to determine if wound care is needed.
[2016-11-03] MEDS: FUROSEMIDE 20 MG/2 ML VIAL IVP SCH ×2 (09:55→11:09)
[2016-11-03] MEDS: ENOXAPARIN 40 MG/0.4 ML SYR SC SCH (09:55)
[2016-11-03] MEDS ORDERED: PROTOCOL POTASSIUM 1 DOSE MISC PRN (11:35)
--- NOTE | 2016-11-03 11:48 | HOSPPROG ---
Hospitalist Progress Note Assessment/Plan: # weakness - multifactorial; treat UTI and follow clinically while continuing PT and OT # T10-L1 compression fx's - some acute, some chronic - no brace or kypho per nsg # R foot hematoma - will follow clinically for now # UTI, e. coli - cont rocephin # anasarca best explained by liver failure - check RUQ US and echo, cont lasix # hypokalemia - replete on protocol # hypoNa - better # anemia, macrocytic - suspect d/t etOH # mild coagulopathy # possible old L femoral vein thrombus - will cont lovenox despite a hematoma # h/o etOH abuse - abstinent since August # protein calorie malnutrition # depr - remeron # neuropathy - gabapentin HS Subjective: not able to walk; new hematoma on foot Objective: Vital Signs Temp Pulse Resp BP Pulse Ox 36.2 C 95 12 114/58 L 88 L 11/03/16 11:24 11/03/16 11:24 11/03/16 11:24 11/03/16 11:24 11/03/16 11:24 Microbiology 11/01/16 23:26 Urine Culture - Final Urine,Clean Catch Escherichia Coli Laboratory Results 11/03/16 05:28 11/02/16 11/03/16 11/04/16 05:59 05:59 05:59 Intake Total 50 400 Output Total 100 Balance -50 400 PT 16.6 SEC (12.0-15.0) H 10/31/16 13:00 INR 1.34 (0.83-1.16) H 10/31/16 13:00 chart reviewed MRIs reviewed - Physical Exam Constitutional: chronically ill appearing Cardiovascular: regular rate and rhythym, systolic murmur, No diastolic murmur, No tachycardia, No bradycardia Respiratory: no respiratory distress, inspiratory crackles (bilat bases), No reduced air movement, No expiratory wheeze, No bronchial breath sounds Gastrointestinal: normoactive bowel sounds, soft, non-tender abdomen, no palpable masses, distension (mild) ICD10 Worksheet Patient Problems: Problems Problem Status Onset Upper GI bleed Acute Severe low back pain Acute Compression fracture of spine Acute Failure to thrive Acute
[2016-11-03] MEDS: PANTOPRAZOLE SODIUM 40 MG in NS 100 ML IV SCH ×2 (13:18→22:56)
[2016-11-03] MEDS ORDERED: POTASSIUM CL 20 MEQ TAB PO ONE (17:45)
--- NOTE | 2016-11-03 18:02 | ECHO ---
[id number] + + [address] : : [place] [address] : : [phone] + + Adult Echocardiographic Report + --------+ :Name: SORIN GARRIDO PStudy Date: 11/03/2016 12:46 PM : : Hospital Admission Number: [id number] Locat ion: 396: :: 1935 Gender: Female Height: 63 in : :Age: 81 yrs Race: WH Weight: 126 l b : :Reason For Study: Edema : : BSA: 1.6 mete rs2 : + --------+ MMode/2D Measurements \T\ Calculations LVIDd: 3.1 cm EDV(Teich): 36.8 ml Ao root diam: 2.9 cm LVOT diam: 1.7 cm LA dimension: 2.3 cm LVOT area: 2.4 cm2 Normal Measurement Values: + + :LVIDd (3.5-5.7cm) IVSd (0.6-1.1cm) LVPWd (0.6-1.1cm) Aortic Root (2.0-3.7cm)Left Atrium (1.5-4.0cm): :LV Vol(d) (76-115ml) LV Vol(s) (29-48ml) Ejec Fraction (50-65%)PV Portillo (0.6- 1.2m/s) TV Portillo (0.4-1.0m/s) : :MV E Portillo (0.8-1.0m/s)MV A Portillo (0.3-1.0m/s)LVOT Portillo (0.7-1.2m/s) Asc Ao Portillo ( 0.9-1.8m/s) : + + Doppler Measurements \T\ Calculations MV E max portillo: 72.1 cm/sec Ao mean P.6 mmHg TR max portillo: 257.3 cm/sec MV A max portillo: 114.5 cm/sec Ao V2 mean: 168.9 cm/secTR max P.5 mmHg MV E/A: 0.63 Ao V2 VTI: 47.6 cm RAP systole: 5.0 mmHg RVSP(TR): 31.5 mmHg Left Ventricle The left ventricular cavity is small. There is normal left ventricular wall thickness. The left ventricle is hyperdynamic. Ejection Fraction = 75-80%. No regional wall motion abnormalities noted. Right Ventricle The right ventricle is normal in size and function. Atria The left atrial size is normal. Right atrial size is normal. The interatrial septum is intact with no evidence for an atrial septal defect. Mitral Valve Calcified mitral apparatus. There is no evidence of mitral valve prolapse. There is no mitral valve stenosis. There is mild mitral regurgitation. Tricuspid Valve Normal tricuspid valve. Aortic Valve Moderate aortic valve calcification. Mild valvular aortic stenosis. AV max PG is 26mmHG. AV mean PG is 14mmhG. Mild aortic regurgitation. Pulmonic Valve The pulmonic valve is normal in structure and function. There is no pulmonic valvular regurgitation. Great Vessels The aortic root is normal size. Pericardium/Pleural There is no pericardial effusion. Left pleural effusion. Conclusion A complete two-dimensional transthoracic echocardiogram was performed (2D, M-mode, Doppler and color flow Doppler). The left ventricle is hyperdynamic. Ejection Fraction = 75-80%. The left ventricular cavity is small. Calcified mitral apparatus. There is mild mitral regurgitation. Moderate aortic valve calcification. Mild valvular aortic stenosis. AV max PG is 26mmHG. AV mean PG is 14mmhG. Mild aortic regurgitation. Left pleural effusion. No prior echo Final Reading Physician: Dr Joan Crooks electronically signed on 11/03/2016 06:01 PM Ordering Physician: Nikolas Ortiz Performed By: Elzbieta Sandoval, RAVEN
[2016-11-03 20:22] LABS: POTASSIUM 2.6 mEq/L (3.5-5.2)
[2016-11-03] MEDS ORDERED: POTASSIUM CL 20 MEQ/15 ML UDCUP PO ONE (20:30)
[2016-11-03] MEDS ORDERED: PANTOPRAZOLE SODIUM 40 MG TAB PO SCH (21:00)
[2016-11-03] MEDS: MIRTAZAPINE 15 MG TAB PO SCH (21:29)
[2016-11-03] MEDS: GABAPENTIN 250 MG/5 ML 30 ML BOTTLE PO SCH (21:31)
[2016-11-04 06:00] LABS: % IMMATURE GRANULYOCYTES 0.2 % (0.0-1.1); ABSOLUTE IMMATURE GRANULOCYTES 0.01 10^3/uL (0.00-0.10); ADD DIFF? NO; ADD MORPH? NO; ADD SCAN? NO; ATYPICAL LYMPHOCYTE FLAG 50 (0-99); FRAGMENT RBC FLAG 0 (0-99); HEMATOCRIT 29.1 % (38.0-47.0); HEMOGLOBIN 9.6 g/dL (12.6-16.3); LEFT SHIFT FLG 0 (0-99); LIPEMIA HEMOLYSIS FLAG 80 (0-99); MEAN CELL HEMOGLOBIN 33.2 pg (27.9-34.1); MEAN CELL VOLUME 100.7 fL (81.5-99.8); MEAN PLATELET VOLUME 10.1 fL (8.7-11.7); PLATELET CLUMPS FLAG 0 (0-99); PLATELET COUNT 160 10^3/uL (150-400); RED BLOOD CELL COUNT 2.89 10^6/uL (4.18-5.33); RED CELL DISTRIBUTION WIDTH 13.7 % (11.5-15.2)
[2016-11-04 06:19] LABS: ANION GAP 6 mEq/L (8-16); CALCIUM 8.2 mg/dL (8.5-10.4); CARBON DIOXIDE 22 mEq/l (22-31); CHLORIDE 106 mEq/L (97-110); CREATININE 0.6 mg/dL (0.6-1.0); GLOMERULAR FILTRATION RATE > 60; GLUCOSE 93 mg/dL (70-100); POTASSIUM 3.9 mEq/L (3.5-5.2); SODIUM 134 mEq/L (134-144)
[2016-11-04] MEDS: PANTOPRAZOLE SODIUM 40 MG in NS 100 ML IV SCH ×2 (09:26→21:51)
[2016-11-04] MEDS: ENOXAPARIN 40 MG/0.4 ML SYR SC SCH (09:26)
--- NOTE | 2016-11-04 12:47 | HOSPPROG ---
Hospitalist Progress Note Assessment/Plan: # weakness - multifactorial, suspect mostly d/t cirrhosis; treat UTI and follow clinically while continuing PT and OT # cirrhosis (new dx), d/t etOH: c/b vol overload - increase diuretics today (lasix 20 bid, aldactone 25 daily) - no varices noted on EGD last month # T10-L1 compression fx's - some acute, some chronic - no brace or kypho per nsg # R foot hematoma - hold lovenox, Dr Xiao will evaluate today # UTI, e. coli - cont rocephin D#09/28 # hypokalemia - replete on protocol - aldactone started as above # hypoNa - better # anemia, macrocytic - suspect d/t etOH # mild coagulopathy # possible old L femoral vein thrombus - hold lovenox today # h/o etOH abuse - abstinent since August # protein calorie malnutrition # depr - remeron # neuropathy - gabapentin HS Subjective: discussed cirrhosis with Ms Ramesh; she would like to dicsuss with her daughter herself; ongoing abd distension Objective: Vital Signs Temp Pulse Resp BP Pulse Ox 36.4 C 97 16 106/58 L 93 11/04/16 11:45 11/04/16 11:45 11/04/16 11:45 11/04/16 11:45 11/04/16 11:45 Microbiology 11/01/16 23:26 Urine Culture - Final Urine,Clean Catch Escherichia Coli Laboratory Results 11/04/16 05:43 11/04/16 05:43 11/03/16 11/04/16 11/05/16 05:59 05:59 05:59 Intake Total 925 Balance 925 PT 16.6 SEC (12.0-15.0) H 10/31/16 13:00 INR 1.34 (0.83-1.16) H 10/31/16 13:00 - Physical Exam Constitutional: chronically ill appearing Cardiovascular: regular rate and rhythym, systolic murmur, No irregularly irregular, No tachycardia, No bradycardia Respiratory: no respiratory distress, no rales or rhonchi, clear to auscultation Gastrointestinal: normoactive bowel sounds, no palpable masses, ascites, distension, No tenderness, No guarding, No rebound ICD10 Worksheet Patient Problems: Problems Problem Status Onset Upper GI bleed Acute Severe low back pain Acute Compression fracture of spine Acute Failure to thrive Acute
[2016-11-04] MEDS: SPIRONOLACTONE 25 MG TAB PO SCH (14:03)
[2016-11-04] MEDS: FUROSEMIDE 40 MG TAB PO SCH (14:03)
[2016-11-04 19:10] LABS: POTASSIUM 3.3 mEq/L (3.5-5.2)
[2016-11-04] MEDS: MIRTAZAPINE 15 MG TAB PO SCH (21:50)
[2016-11-04] MEDS: GABAPENTIN 250 MG/5 ML 30 ML BOTTLE PO SCH (21:50)
[2016-11-05] MEDS ORDERED: POTASSIUM CL 20 MEQ/15 ML UDCUP PO ONE ×3 (04:00→21:00)
[2016-11-05 06:16] LABS: ALANINE AMINOTRANSFERASE 34 IU/L (9-52); ALBUMIN 2.2 g/dL (3.5-5.0); ALKALINE PHOSPHATASE 125 IU/L (38-126); ANION GAP 4 mEq/L (8-16); ASPARTATE AMINOTRANSFERASE 44 IU/L (14-46); BILIRUBIN,TOTAL 1.3 mg/dL (0.1-1.4); CALCIUM 8.1 mg/dL (8.5-10.4); CARBON DIOXIDE 23 mEq/l (22-31); CHLORIDE 105 mEq/L (97-110); CREATININE 0.6 mg/dL (0.6-1.0); GLOMERULAR FILTRATION RATE > 60; GLUCOSE 114 mg/dL (70-100); POTASSIUM 3.7 mEq/L (3.5-5.2); SODIUM 132 mEq/L (134-144); TOTAL PROTEIN 5.7 g/dL (6.3-8.2)
[2016-11-05] MEDS: FUROSEMIDE 40 MG TAB PO SCH ×2 (08:00→15:54)
[2016-11-05] MEDS: PANTOPRAZOLE SODIUM 40 MG in NS 100 ML IV SCH ×2 (08:00→21:18)
[2016-11-05] MEDS: SPIRONOLACTONE 25 MG TAB PO SCH (08:00)
[2016-11-05] MEDS ORDERED: POTASSIUM CL 10 MEQ TAB PO ONE (08:03)
--- NOTE | 2016-11-05 15:58 | WOCRNPDOC ---
WOCRN Advanced Assessment Note - Skin Integrity Problem, Advanced Assess Sacrum Pressure Injury Dressing Type: Allevyn Life Dressing Description: Intact Exudate Amount: None Exudate Characteristic(s): None Integumentary Issue Intervention: Visualized Under Dressing Deborah Wound Tissue: Blanching, Erythema, Intact Deborah Wound Swelling: None Pressure Injury Stage: Stage 1 Skin Integrity Problem Comment: Previously non-blanching pressure injury on sacrum is now blanching w/ intact skin. Continue w/ pressure-relieving interventions, as they are clearly effective. oceanologistSITA Wheat present and assisting. Right Foot Blister Dressing Type: Open to Air Exudate Amount: None Exudate Characteristic(s): None Deborah Wound Tissue: Erythema, Swollen, Hemosiderin Staining, Venous Dermatitis Deborah Wound Swelling: Moderate Wound Bed Color: Purple Wound Bed Constitution: Intact Serous Filled Blister (serosanguinos) Skin Integrity Problem Comment: Serosanguinous blister intact to dorsum of R foot. +2 edema noted throughout this extremity, slightly decreased since previous assessment. Patient reports that she has blisters "come and go" all the time on both legs/feet, however this bulla clearly has some bleeding, indicative of trauma to the site. Will continue to monitor. Left Gluteal Folds Dressing Type: Open to Air Exudate Amount: None Exudate Characteristic(s): None Deborah Wound Tissue: Denuded Deborah Wound Swelling: None Wound Bed Color: Red Wound Edges: Well Defined Skin Integrity Problem Comment: Three, discrete, small abrasions noted in L gluteal fold where buttock meets the top of the thigh, no exudate or swelling noted. These injuries are linear, consistent with fiore from fingernails. Patient denies scratching this site. No need for wound care at this time, sites left [employer]. Visualized w/ oceanologistSITA Wheat.
--- NOTE | 2016-11-05 16:35 | HOSPPROG ---
Hospitalist Progress Note Assessment/Plan: # weakness - multifactorial, suspect mostly d/t cirrhosis; treat UTI and follow clinically while continuing PT and OT # cirrhosis (new dx), d/t etOH: c/b vol overload - increase diuretics today (lasix 20 bid, aldactone 25 daily) - no varices noted on EGD last month - palliative care ordered # T10-L1 compression fx's - some acute, some chronic - no brace or kypho per nsg # tachycardia, mild - will monitor for now; BP ok, seems to be tolerating diuresis but will follow closely - doubt PE, missed one day of ppx lovenox # R foot hematoma - - will d/w Dr Xiao tomorrow - plan to monitor for now # UTI, e. coli - cont rocephin D#10/29 # hypokalemia - replete on protocol - aldactone started as above # hypoNa - better # anemia, macrocytic - suspect d/t etOH # mild coagulopathy # possible old L femoral vein thrombus - restart lovenox # h/o etOH abuse - abstinent since August # protein calorie malnutrition # depr - remeron # neuropathy - gabapentin HS Subjective: long discussion with patient and Briana (dtr, on the phone) regarding current medical issues including cirrhosis Objective: Vital Signs Temp Pulse Resp BP Pulse Ox 36.6 C 101 H 20 108/53 L 98 11/05/16 16:00 11/05/16 16:00 11/05/16 16:00 11/05/16 16:00 11/05/16 16:00 Laboratory Results 11/04/16 05:43 11/05/16 05:09 11/04/16 11/05/16 11/06/16 05:59 05:59 05:59 Intake Total 925 100 Balance 925 100 PT 16.6 SEC (12.0-15.0) H 10/31/16 13:00 INR 1.34 (0.83-1.16) H 10/31/16 13:00 - Time Spent With Patient Time Spent with Patient: greater than 35 minutes Time Spent with Patient: Greater than 35 minutes spent on this patients care, greater than 50% of time spent counseling, educating, and coordinating care regarding the above mentioned plan. - Physical Exam Constitutional: chronically ill appearing ICD10 Worksheet Patient Problems: Problems Problem Status Onset Upper GI bleed Acute Severe low back pain Acute Compression fracture of spine Acute Failure to thrive Acute
[2016-11-05 19:55] LABS: POTASSIUM 3.5 mEq/L (3.5-5.2)
[2016-11-05] MEDS: GABAPENTIN 250 MG/5 ML 30 ML BOTTLE PO SCH (21:19)
[2016-11-05] MEDS: MIRTAZAPINE 15 MG TAB PO SCH (21:20)
[2016-11-06] MEDS: SPIRONOLACTONE 25 MG TAB PO SCH (08:49)
[2016-11-06] MEDS: FUROSEMIDE 40 MG TAB PO SCH ×2 (08:49→16:32)
[2016-11-06] MEDS: ENOXAPARIN 40 MG/0.4 ML SYR SC SCH (08:49)
[2016-11-06] MEDS: PANTOPRAZOLE SODIUM 40 MG in NS 100 ML IV SCH (09:20)
--- NOTE | 2016-11-06 10:22 | HOSPPROG ---
Hospitalist Progress Note Assessment/Plan: # weakness/deconditioning - multifactorial, suspect mostly d/t cirrhosis; UTI has been treated, follow clinically while continuing PT and OT # cirrhosis (new dx), d/t etOH: c/b vol overload - cont diuretics today (lasix 20 bid, aldactone 25 daily) - seems to be tolerating, follow weights - no varices noted on EGD last month - palliative care ordered - hopefully today # T10-L1 compression fx's - some acute, some chronic - no brace or kypho per nsg # tachycardia, mild - will monitor for now; BP ok, seems to be tolerating diuresis but will follow closely - doubt PE, missed one day of ppx lovenox # R foot hematoma - - plan to drain today - may need wound vac # UTI, e. coli - s/p rocephin x 7 days # hypokalemia - replete on protocol - aldactone started as above # hypoNa - better # anemia, macrocytic - suspect d/t etOH # mild coagulopathy # possible old L femoral vein thrombus - cont lovenox # h/o etOH abuse - abstinent since August # protein calorie malnutrition # depr - remeron # neuropathy - gabapentin HS # dispo - palliative c/s today; will need sNF; expect dc in a few days Subjective: in bed; belly maybe smaller; no foot pain Objective: Vital Signs Temp Pulse Resp BP Pulse Ox 36.6 C 104 H 18 107/59 L 95 11/06/16 08:00 11/06/16 08:00 11/06/16 08:00 11/06/16 08:00 11/06/16 08:00 Laboratory Results 11/04/16 05:43 11/05/16 19:17 11/05/16 11/06/16 11/07/16 05:59 05:59 05:59 Intake Total 100 Balance 100 PT 16.6 SEC (12.0-15.0) H 10/31/16 13:00 INR 1.34 (0.83-1.16) H 10/31/16 13:[address] Xiao - drain hematoma today - Physical Exam Constitutional: chronically ill appearing, cachectic Cardiovascular: regular rate and rhythym, systolic murmur, tachycardia, No irregularly irregular, No bradycardia Respiratory: no respiratory distress, no rales or rhonchi, clear to auscultation Gastrointestinal: normoactive bowel sounds, no palpable masses, ascites, distension, No tenderness, No guarding, No rebound ICD10 Worksheet Patient Problems: Problems Problem Status Onset Upper GI bleed Acute Severe low back pain Acute Compression fracture of spine Acute Failure to thrive Acute
--- NOTE | 2016-11-06 10:29 | SOAPPROG ---
SOAP Progress Note Assessment/Plan: Assessment: RT FOOT HEMATOMA NOT RESOLVING Plan:DRAIN TODAY AND THEN WOUND VAC/ EVENTUAL STSG 11/06/16 10 Objective: Vital Signs Temp Pulse Resp BP Pulse Ox 36.6 C 104 H 18 107/59 L 95 11/06/16 08:00 11/06/16 08:00 11/06/16 08:00 11/06/16 08:00 11/06/16 08:00 Laboratory Results 11/04/16 05:43 11/05/16 19:17 11/05/16 11/06/16 11/07/16 05:59 05:59 05:59 Intake Total 100 Balance 100 PT 16.6 SEC (12.0-15.0) H 10/31/16 13:00 INR 1.34 (0.83-1.16) H 10/31/16 13:00 ICD10 Worksheet Patient Problems: Problems Problem Status Onset Compression fracture of spine Acute Failure to thrive Acute Severe low back pain Acute Upper GI bleed Acute
--- NOTE | 2016-11-06 16:11 | PDPCPN ---
Palliative Care Progress Note Assessment/Plan: Referring provider: Dr Ortiz Reason for consult: Complex medical decision making Symptom control HPI: Reena fuller is a 81 yo female with PMH diastolic CHF, cirrhosis, and recent T12 compression fracture admitted to the hospital for failure to thrive and increased weakness. She had a fall 08/2016 with t12 compression fracture treated medically. Was discharged to rehab but readmitted to [facility] for GI bleed. She was stabilized and sent back to rehab but discharged soon after due to failure to make progress. She has been at home with 24/7 caregivers since bed bound since her fall, poor appetite, and ongoing fatigue and weakness. She had been a heavy drinker for most of her adult life but last drink was before her fall. She was living completely independently prior to her fall. She has been complaining of a general body pain with very sensitive skin. Started on gabapentin as outpt. She expresses ongoing sadness and frustration with her situation and was started on remeron while in rehab. Palliative care consulted for complex medical decision making. Met with Reena and her daughter Kimber at the bedside this afternoon. Discussed Reena's goals which she said is to get better. She realizes she will not be traveling as much as she used to but hopes to be able to get back home to do some of the things she enjoys. She likes to cook and listen to audio books. She does not like the idea of rehab but agrees to go there at discharge to work on her weakness. We talked at length about her weakness and her needed engagement in therapies to improve. Assessment: Physical: - Pain: generalized body pain which she describes as neuropathic in nature - on gabapentin 150mg QHS- increase to 300mg QHS - tylenol PRN - poor appetite - on remeron, not sure it is helping much - general diet as tolerated - weakness - PT/OT - full nursing support Emotional/psychological: Situational depression: on remeron 7.5mg QHS - socially responsible investment adviser following - allow for choices and as much independence as possible Advanced Care Planning: Is patient decisional?: Yes Code Status: Full MD POA: Kimber and Briana make decisions together Plan: [facility] at discharge. Will need ongoing emotional support. Subjective: my pain is a little better Objective: Social History: 2 daughters very involved. Likes to listen to audio books. Medication list reviewed ROS: General: fatigue, weakness ENT: dysphagia Resp: negative GI: poor appetite : negative MS: general body pain Skin: blisters on feet Neuro: negative Psych: depression Functional assessment: PPS: 40% Functional status: dependent on ADLs, IADLs Vital Signs Temp Pulse Resp BP Pulse Ox 36.5 C 100 18 100/50 L 96 11/06/16 12:00 11/06/16 12:00 11/06/16 12:00 11/06/16 12:00 11/06/16 12:00 Laboratory Results 11/04/16 05:43 11/05/16 19:17 11/05/16 11/06/16 11/07/16 05:59 05:59 05:59 Intake Total 100 Balance 100 PT 16.6 SEC (12.0-15.0) H 10/31/16 13:00 INR 1.34 (0.83-1.16) H 10/31/16 13:00 Physical Exam - Physical Exam General Appearance: alert, no apparent distress Respiratory: No respiratory distress, No accessory muscle use Skin: normal color, warm/dry Extremities: pedal edema Neuro/Psych: alert, oriented x 3 ICD10 Worksheet Patient Problems: Problems Problem Status Onset Compression fracture of spine Acute Failure to thrive Acute Palliative care encounter Acute Severe low back pain Acute Upper GI bleed Acute - ICD10 Problem Qualifiers (1) Palliative care encounter
[2016-11-06 19:19] LABS: POTASSIUM 3.8 mEq/L (3.5-5.2)
[2016-11-06] MEDS ORDERED: POTASSIUM CL 20 MEQ/15 ML UDCUP PO ONE (20:45)
[2016-11-06] MEDS: PANTOPRAZOLE SODIUM 40 MG TAB PO SCH (21:21)
[2016-11-06] MEDS: GABAPENTIN 250 MG/5 ML 30 ML BOTTLE PO SCH (21:21)
[2016-11-06] MEDS: MIRTAZAPINE 15 MG TAB PO SCH (21:21)
[2016-11-07 05:23] LABS: ANION GAP 4 mEq/L (8-16); CALCIUM 8.2 mg/dL (8.5-10.4); CARBON DIOXIDE 24 mEq/l (22-31); CHLORIDE 103 mEq/L (97-110); CREATININE 0.6 mg/dL (0.6-1.0); GLOMERULAR FILTRATION RATE > 60; GLUCOSE 99 mg/dL (70-100); POTASSIUM 4.1 mEq/L (3.5-5.2); SODIUM 131 mEq/L (134-144)
[2016-11-07] MEDS: PANTOPRAZOLE SODIUM 40 MG TAB PO SCH ×2 (08:33→21:20)
[2016-11-07] MEDS: SPIRONOLACTONE 25 MG TAB PO SCH (08:33)
[2016-11-07] MEDS: FUROSEMIDE 40 MG TAB PO SCH ×2 (08:33→14:48)
[2016-11-07] MEDS: ENOXAPARIN 40 MG/0.4 ML SYR SC SCH (08:34)
--- NOTE | 2016-11-07 11:26 | WOCRNPDOC ---
WOCRN Advanced Assessment Note - Skin Integrity Problem, Advanced Assess Right Foot Blister Dressing Type: Kerlix, Xeroform Dressing Description: Intact Exudate Amount: Minimal Exudate Color: Reddish/Yellow Exudate Characteristic(s): Serosanguinous Integumentary Issue Intervention: Dressing Changed, Silver Gel Applied Deborah Wound Tissue: Ecchymotic, Swollen Deborah Wound Swelling: Mild Wound Bed Color: Red Wound Bed Constitution: Smooth Tissue Wound Edges: Attached (from 3-8 o'clock), Not Attached (from 9-2 o'clock) Site Odor: None Site Measurement - Head-to-Toe Length X Width X Depth (cm): 3.1cmx3.5cmx0.1cm Skin Integrity Problem Comment: Hematoma on dorsum of R foot was excised/ drained yesterday by Dr. Xiao. Upon assessment today, wound bed comprised of smooth tissue throughout, no apparent necrosis noted. Margins are friable, and wound has appearance of a de-roofed blister. Ecchymosis noted in immediate deborah- wound tissue consistent w/ trauma to site. Patient has mild to moderate edema throughout entire RLE, consistent w/ venous insifficiency. Swelling in R foot does not appear to be wound-related. Discussed plan with Rhys RAMOS and Dr. Guillen, and plan is to apply foam dressing and continue w/ dressing changes q3 days. Patient's daughter Briana present in room during assessment; discussed plan of care for the wound going forward. Report given to production control specialistSITA Thomas.
--- NOTE | 2016-11-07 13:46 | HOSPPROG ---
Hospitalist Progress Note Assessment/Plan: 81y female with weakness. This is my first encounter. Chart reviewed. D/W Dr Casillas. # weakness/deconditioning - multifactorial, suspect mostly d/t cirrhosis; UTI has been treated, follow clinically while continuing PT and OT # cirrhosis (new dx), d/t etOH: c/b vol overload - cont diuretics (lasix 20 bid, aldactone 25 daily) - seems to be tolerating , follow weights - no varices noted on EGD last month - palliative care # T10-L1 compression fx's - some acute, some chronic - no brace or kypho per nsg # tachycardia, mild - will monitor for now; BP ok, seems to be tolerating diuresis but will follow closely - doubt PE, missed one day of ppx lovenox # R foot hematoma - - drained needs wound vac # UTI, e. 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 No complaints. Objective: Vital Signs Temp Pulse Resp BP Pulse Ox 36.6 C 102 H 18 109/55 L 97 11/07/16 11:17 11/07/16 11:17 11/07/16 11:17 11/07/16 11:17 11/07/16 11:17 Laboratory Results 11/04/16 05:43 11/07/16 05:00 PT 16.6 SEC (12.0-15.0) H 10/31/16 13:00 INR 1.34 (0.83-1.16) H 10/31/16 13:00 - Physical Exam Constitutional: chronically ill appearing, uncomfortable, cachectic Eyes: PERRL, anicteric sclera, EOMI Ears, Nose, Mouth, Throat: moist mucous membranes, hearing normal, ears appear normal Cardiovascular: No JVD, No tachycardia, No edema Respiratory: no respiratory distress, no rales or rhonchi, reduced air movement Gastrointestinal: tenderness, No ascites, No guarding Skin: warm, pressure ulcer, No mottled Musculoskeletal: pain with ROM, muscular tenderness, generalized weakness Psychiatric: not anxious, not encephalopathic, poor insight, poor judgement, poor memory ICD10 Worksheet Patient Problems: Problems Problem Status Onset Upper GI bleed Acute Severe low back pain Acute Compression fracture of spine Acute Failure to thrive Acute Palliative care encounter Acute
--- NOTE | 2016-11-07 17:18 | SOAPPROG ---
SOAP Progress Note Assessment/Plan: Assessment: s/p drainage of hematoma on foot. Jacklyn Daily RN recently changed with hydrofera blue. Dressing intact Plan: 11/07/16 17:17 Objective: Vital Signs Temp Pulse Resp BP Pulse Ox 36.6 C 105 H 18 100/54 L 97 11/07/16 16:00 11/07/16 16:00 11/07/16 16:00 11/07/16 16:00 11/07/16 16:00 Laboratory Results 11/04/16 05:43 11/07/16 05:00 PT 16.6 SEC (12.0-15.0) H 10/31/16 13:00 INR 1.34 (0.83-1.16) H 10/31/16 13:00 ICD10 Worksheet Patient Problems: Problems Problem Status Onset Compression fracture of spine Acute Failure to thrive Acute Palliative care encounter Acute Severe low back pain Acute Upper GI bleed Acute
[2016-11-07 19:13] LABS: POTASSIUM 3.3 mEq/L (3.5-5.2)
[2016-11-07] MEDS: MIRTAZAPINE 15 MG TAB PO SCH (21:20)
[2016-11-07] MEDS: GABAPENTIN 250 MG/5 ML 30 ML BOTTLE PO SCH (21:25)
[2016-11-07] MEDS ORDERED: POTASSIUM CL 10 MEQ TAB PO ONE (21:29)
[2016-11-08 05:23] LABS: POTASSIUM 4.1 mEq/L (3.5-5.2)
--- NOTE | 2016-11-08 10:18 | HOSPPROG ---
Hospitalist Progress Note Assessment/Plan: 81y female with weakness. This is my first encounter. Chart reviewed. # weakness/deconditioning - multifactorial: cirrhosis, back fx, recent uti,hx of heavy alcohol use # cirrhosis (new dx)/ascites -diuretics (Lasix 20 mg bid, Aldactone 25 g daily) -EGD last month/no varices -needs daily weights -somewhat drowsy and slow to answer my questions -check an ammonia level # T10-L1, T12 subacute compression fx's - some acute, some chronic - no brace or kypho per nsg #Hyponatremia -recent NA is 131 # tachycardia, mild - -ultrasound is negative for a dvt -echo doesn't indicate right heart strain # R foot hematoma - -s/p drainage # UTI, e. 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 Subjective: Reena has c/o pain to her left foot area. Objective: Vital Signs Temp Pulse Resp BP Pulse Ox 36.7 C 95 18 100/53 L 94 11/08/16 08:00 11/08/16 08:00 11/08/16 08:00 11/08/16 08:00 11/08/16 08:00 Laboratory Results 11/04/16 05:43 11/08/16 05:01 PT 16.6 SEC (12.0-15.0) H 10/31/16 13:00 INR 1.34 (0.83-1.16) H 10/31/16 13:00 - Physical Exam Constitutional: chronically ill appearing, uncomfortable Eyes: PERRL Ears, Nose, Mouth, Throat: hearing normal Cardiovascular: regular rate and rhythym, systolic murmur Respiratory: no respiratory distress, reduced air movement Gastrointestinal: normoactive bowel sounds, ascites Skin: warm Musculoskeletal: generalized weakness Neurologic: other (alert but falls asleep quickly, knows she is in the hospital) Psychiatric: interacting appropriately ICD10 Worksheet Patient Problems: Problems Problem Status Onset Compression fracture of spine Acute Failure to thrive Acute Palliative care encounter Acute Severe low back pain Acute Upper GI bleed Acute
[2016-11-08] MEDS: PANTOPRAZOLE SODIUM 40 MG TAB PO SCH ×2 (10:40→22:11)
[2016-11-08] MEDS: SPIRONOLACTONE 25 MG TAB PO SCH (10:40)
[2016-11-08] MEDS: FUROSEMIDE 40 MG TAB PO SCH ×2 (10:40→16:37)
[2016-11-08] MEDS: ENOXAPARIN 40 MG/0.4 ML SYR SC SCH (10:41)
--- NOTE | 2016-11-08 11:34 | SOAPPROG ---
SOAP Progress Note Assessment/Plan: Assessment: s/p drainage of hematoma on foot. Jacklyn Daily RN recently changed with hydrofera blue. Dressing with scant stain. Will see periodically as inpatient Plan: 11/07/16 17:17 11/08/16 11:33 Objective: Vital Signs Temp Pulse Resp BP Pulse Ox 36.7 C 96 20 104/57 L 95 11/08/16 11:31 11/08/16 11:31 11/08/16 11:31 11/08/16 11:31 11/08/16 11:31 Laboratory Results 11/04/16 05:43 11/08/16 05:01 PT 16.6 SEC (12.0-15.0) H 10/31/16 13:00 INR 1.34 (0.83-1.16) H 10/31/16 13:00 ICD10 Worksheet Patient Problems: Problems Problem Status Onset Compression fracture of spine Acute Failure to thrive Acute Palliative care encounter Acute Severe low back pain Acute Upper GI bleed Acute
--- NOTE | 2016-11-08 14:23 | CPEKG ---
Heart Rate: 106 RR Interval: 566 P-R Interval: 156 QRSD Interval: 76 QT Interval: 314 QTC Interval: 417 P Griswold: 2 QRS Griswold: -12 T Wave Griswold: 219 EKG Severity - ABNORMAL ECG - EKG Impression: SINUS TACHYCARDIA EKG Impression: ABNRM R PROG, CONSIDER ASMI OR LEAD PLACEMENT EKG Impression: NONSPECIFIC T ABNORMALITIES, DIFFUSE LEADS Electronically Signed By: Ronn Lopez 10-Nov-2016 09:05:37
[2016-11-08 15:22] LABS: ANION GAP 4 mEq/L (8-16); CALCIUM 8.2 mg/dL (8.5-10.4); CARBON DIOXIDE 24 mEq/l (22-31); CHLORIDE 101 mEq/L (97-110); CREATININE 0.6 mg/dL (0.6-1.0); GLOMERULAR FILTRATION RATE > 60; GLUCOSE 96 mg/dL (70-100); POTASSIUM 4.1 mEq/L (3.5-5.2); SODIUM 129 mEq/L (134-144)
[2016-11-08 17:06] LABS: GLUCOSE, PERITONEAL FLUID 99 mg/dL (55-113); LD, PERITONEAL FLUID 161 IU/L
[2016-11-08 18:29] LABS: POTASSIUM 3.7 mEq/L (3.5-5.2)
[2016-11-08] MEDS ORDERED: POTASSIUM CL 10 MEQ TAB PO ONE ×2 (19:41→22:30)
[2016-11-08] MEDS: cefTRIAXone 2 GM in D5W 50 ML IV SCH (22:05)
[2016-11-08] MEDS: MIRTAZAPINE 15 MG TAB PO SCH (22:10)
[2016-11-08] MEDS: GABAPENTIN 250 MG/5 ML 30 ML BOTTLE PO SCH (22:17)
[2016-11-09] MEDS: cefTRIAXone 2 GM in D5W 50 ML IV SCH (08:23)
[2016-11-09] MEDS: SPIRONOLACTONE 25 MG TAB PO SCH (08:24)
[2016-11-09] MEDS: ENOXAPARIN 40 MG/0.4 ML SYR SC SCH (08:24)
[2016-11-09] MEDS: FUROSEMIDE 40 MG TAB PO SCH ×2 (08:24→15:34)
--- NOTE | 2016-11-09 08:43 | HOSPPROG ---
Hospitalist Progress Note Assessment/Plan: 81y female with weakness. This is my first encounter. Chart reviewed. # weakness/deconditioning - multifactorial: cirrhosis, back fx, recent uti,hx of heavy alcohol use # cirrhosis (new dx)/ascites -diuretics (Lasix 20 mg bid, Aldactone 25 g daily) -removed > 3 liters of fluid on 11/08/ patient feeling much better -EGD last month/no varices -needs daily weights # T10-L1, T12 subacute compression fx's - some acute, some chronic - no brace or kypho per nsg #Hyponatremia -recent NA is 129 # tachycardia, persistent -ultrasound is negative for a dvt -echo doesn't indicate right heart strain -[address] -paracentesis doesn't indicate SBP -will get a CTA to r/o any risk of PE/ she is at moderate risk due to immobility # R foot hematoma - -s/p drainage # UTI, e. coli - s/p rocephin x 7 days # hypokalemia - replete on protocol - Aldactone started as above # anemia, macrocytic - suspect d/t etOH # mild coagulopathy # possible old L femoral vein thrombus - cont lovenox # h/o etOH abuse - abstinent since August # protein calorie malnutrition # depression - Remeron # neuropathy - gabapentin HS # dispo -plan is for Reena to go to [facility] rehab/ will get a CTA to r/o a PE, if this is all stable, can dc later today or tomorrow Subjective: Reena is feeling better today, talkative. Objective: Vital Signs Temp Pulse Resp BP Pulse Ox 36.6 C 112 H 16 119/52 L 95 11/09/16 00:00 11/09/16 00:00 11/09/16 00:00 11/09/16 00:00 11/09/16 00:00 Microbiology 11/08/16 15:16 Gram Stain - Final Abdomen - Aspirate Laboratory Results 11/04/16 05:43 11/09/16 05:09 11/08/16 11/09/16 11/10/16 05:59 05:59 05:59 Intake Total 375 Balance 375 PT 16.6 SEC (12.0-15.0) H 10/31/16 13:00 INR 1.34 (0.83-1.16) H 10/31/16 13:00 - Physical Exam Constitutional: not in pain, chronically ill appearing Eyes: PERRL Ears, Nose, Mouth, Throat: hearing normal Cardiovascular: regular rate and rhythym, tachycardia Respiratory: no respiratory distress, reduced air movement Gastrointestinal: normoactive bowel sounds, ascites (better today) Skin: warm Musculoskeletal: generalized weakness Neurologic: AAOx3 Psychiatric: interacting appropriately, not anxious, not encephalopathic, poor memory ICD10 Worksheet Patient Problems: Problems Problem Status Onset Compression fracture of spine Acute Failure to thrive Acute Palliative care encounter Acute Severe low back pain Acute Upper GI bleed Acute
[2016-11-09] MEDS ORDERED: IOPAMIDOL (ISOVUE 370) 100 ML BTL IV ONE (09:02)
[2016-11-09] MEDS: PANTOPRAZOLE SODIUM 40 MG TAB PO SCH ×2 (10:11→20:38)
--- NOTE | 2016-11-09 16:44 | WOCRNPDOC ---
WOCRN Advanced Assessment Note - Skin Integrity Problem, Advanced Assess Bilateral Hip Blister Dressing Type: Open to Air Exudate Amount: None Exudate Characteristic(s): None Integumentary Issue Intervention: Dressing Applied (Cavilon skin protectant, Allevyns) Deborah Wound Tissue: Intact Wound Bed Constitution: Intact Serous Filled Blister Site Odor: None Site Measurement - Head-to-Toe Length X Width X Depth (cm): L= 2.5 x 1 x 0.3 roof height. R= 1 x 6 x 0.3 roof height Skin Integrity Problem Comment: Intact blisters have formed along stretch fiore , filled with clear fluid. Protected sites with Cavilon protectant and Allevyn dressings. Report to SITA Thomas. Left Lateral Abdomen Blister Dressing Type: Open to Air Exudate Amount: None Integumentary Issue Intervention: Dressing Applied (Cavilon protectant, Allevyn) , Dressing Initialed & Dated Deborah Wound Tissue: Intact Wound Bed Constitution: Intact Serous Filled Blister Site Measurement - Head-to-Toe Length X Width X Depth (cm): 3.5 x 2.5 x 0.3 roof height Skin Integrity Problem Comment: Intact blisters have formed along stretch fiore , filled with clear fluid. Protected sites with Cavilon protectant and Allevyn dressings.
[2016-11-09] MEDS: oxyCODONE IR 5 MG TAB PO PRN (17:03)
[2016-11-09 19:12] LABS: POTASSIUM 3.4 mEq/L (3.5-5.2)
[2016-11-09] MEDS ORDERED: POTASSIUM CL 10 MEQ TAB PO ONE (20:00)
[2016-11-09] MEDS: MIRTAZAPINE 15 MG TAB PO SCH (20:38)
[2016-11-09] MEDS: GABAPENTIN 250 MG/5 ML 30 ML BOTTLE PO SCH (21:09)
[2016-11-10 05:15] LABS: % IMMATURE GRANULYOCYTES 0.5 % (0.0-1.1); ABSOLUTE IMMATURE GRANULOCYTES 0.03 10^3/uL (0.00-0.10); ADD DIFF? NO; ADD MORPH? NO; ADD SCAN? NO; ATYPICAL LYMPHOCYTE FLAG 0 (0-99); FRAGMENT RBC FLAG 0 (0-99); HEMOGLOBIN 8.4 g/dL (12.6-16.3); LEFT SHIFT FLG 0 (0-99); LIPEMIA HEMOLYSIS FLAG 80 (0-99); MEAN CELL HEMOGLOBIN 32.3 pg (27.9-34.1); MEAN CELL HEMOGLOBIN CONCENTR. 32.3 g/dL (32.4-36.7); MEAN PLATELET VOLUME 10.6 fL (8.7-11.7); PLATELET CLUMPS FLAG 10 (0-99); PLATELET COUNT 157 10^3/uL (150-400); RED CELL DISTRIBUTION WIDTH 15.3 % (11.5-15.2)
[2016-11-10 05:35] LABS: ALANINE AMINOTRANSFERASE 34 IU/L (9-52); ALBUMIN 1.9 g/dL (3.5-5.0); ALKALINE PHOSPHATASE 99 IU/L (38-126); ANION GAP 3 mEq/L (8-16); ASPARTATE AMINOTRANSFERASE 34 IU/L (14-46); BILIRUBIN,TOTAL 0.9 mg/dL (0.1-1.4); CALCIUM 8.2 mg/dL (8.5-10.4); CARBON DIOXIDE 26 mEq/l (22-31); CHLORIDE 100 mEq/L (97-110); CREATININE 0.6 mg/dL (0.6-1.0); GLOMERULAR FILTRATION RATE > 60; GLUCOSE 91 mg/dL (70-100); POTASSIUM 3.9 mEq/L (3.5-5.2); SODIUM 129 mEq/L (134-144); TOTAL PROTEIN 5.6 g/dL (6.3-8.2)
[2016-11-10 06:46] LABS: POTASSIUM 3.9 mEq/L (3.5-5.2)
[2016-11-10 08:51] VITALS: PULSE 106
--- NOTE | 2016-11-10 08:58 | HOSPPROG ---
Hospitalist Progress Note Assessment/Plan: 81y female with weakness. This is my first encounter. Chart reviewed. # weakness/deconditioning - multifactorial: cirrhosis, back fx, recent uti,hx of heavy alcohol use # cirrhosis (new dx)/ascites -diuretics (Lasix 20 mg bid, Aldactone 25 g daily) -removed > 3 liters of fluid on 11/08/ patient feeling much better -EGD last month/no varices -needs daily weights # T10-L1, T12 subacute compression fx's - some acute, some chronic - no brace or kypho per nsg #Hyponatremia -recent NA is 129 #pleural effusions with associated atelectasis -encourage IS -needs more mobilization # tachycardia, persistent -ultrasound is negative for a dvt -echo doesn't indicate right heart strain -[address] -paracentesis doesn't indicate SBP -CTA is negative for a PE # R foot hematoma - -s/p drainage # UTI, e. coli - s/p rocephin x 7 days # hypokalemia - replete on protocol - Aldactone started as above # anemia, macrocytic - suspect d/t etOH # mild coagulopathy # possible old L femoral vein thrombus - cont lovenox # h/o etOH abuse - abstinent since August # protein calorie malnutrition # depression - Remeron # neuropathy - gabapentin HS # dispo -plan is for Reena to go to [facility] rehab/ will update her daughter Subjective: Reena is feeling better today/ feels ok to dc. Objective: Vital Signs Temp Pulse Resp BP Pulse Ox 36.9 C 106 H 14 112/57 L 97 11/10/16 08:51 11/10/16 08:51 11/10/16 08:51 11/10/16 08:51 11/10/16 08:51 Microbiology 11/08/16 15:16 Gram Stain - Final Abdomen - Aspirate Laboratory Results 11/10/16 04:50 11/10/16 06:30 11/09/16 11/10/16 11/11/16 05:59 05:59 05:59 Intake Total 375 150 Output Total 300 Balance 375 -150 PT 16.6 SEC (12.0-15.0) H 10/31/16 13:00 INR 1.34 (0.83-1.16) H 10/31/16 13:00 - Physical Exam Constitutional: not in pain, chronically ill appearing Eyes: PERRL Ears, Nose, Mouth, Throat: hearing normal Cardiovascular: regular rate and rhythym Respiratory: no respiratory distress, reduced air movement Gastrointestinal: ascites Skin: warm Musculoskeletal: generalized weakness Neurologic: AAOx3 Psychiatric: interacting appropriately, not anxious ICD10 Worksheet Patient Problems: Problems Problem Status Onset Compression fracture of spine Acute Failure to thrive Acute Palliative care encounter Acute Severe low back pain Acute Upper GI bleed Acute
[2016-11-10] MEDS: ENOXAPARIN 40 MG/0.4 ML SYR SC SCH (10:08)
[2016-11-10] MEDS: PANTOPRAZOLE SODIUM 40 MG TAB PO SCH (10:09)
[2016-11-10] MEDS: FUROSEMIDE 40 MG TAB PO SCH ×2 (10:09→15:23)
[2016-11-10] MEDS: SPIRONOLACTONE 25 MG TAB PO SCH (10:09)
--- NOTE | 2016-11-10 10:27 | PDIAF ---
- Diagnosis Diagnosis: FTT, cirrhosis, ascites, hyponatremia Code Status: Full Code - Medication Management Discharge Medications: Medications to Continue on Transfer Pantoprazole Sodium [Protonix 40mg (*)] 40 mg PO BID #28 tab 09/27/16 [Last Taken 10/30/16] MIRTAZAPINE [Remeron 7.5 mg] 7.5 mg PO HS 10/31/16 [Last Taken 10/30/16] Acetaminophen [Tylenol 325mg (*)] 650 mg PO Q4HRS PRN #0 tab 11/10/16 [Last Taken Unknown] Enoxaparin [Lovenox 40 MG (*)] 40 mg SC DAILY syr 11/10/16 [Last Taken Unknown] Furosemide [Lasix 40 MG (*)] 20 mg PO BID@0900,1500 tab 11/10/16 [Last Taken Unknown] Gabapentin [Neurontin Oral Liquid] 300 mg PO HS bottle 11/10/16 [Last Taken Unknown] Pantoprazole Sodium [Protonix 40mg (*)] 40 mg PO BID tab 11/10/16 [Last Taken Unknown] Spironolactone [Aldactone 25 MG (*)] 25 mg PO DAILY tab 11/10/16 [Last Taken Unknown] oxyCODONE IR [Oxycodone Ir (*)] 5 - 10 mg PO Q3HRS PRN #20 tab 11/10/16 [Last Taken Unknown] Discharge Medications: Refer to the Discharge Home Medication list for PRN reason. - Orders Services needed: Registered Nurse, Physical Therapy, Occupational Therapy Diet Recommendation: no restrictions on diet Diet Texture: Regular Texture Diet, Thin Liquids, Meds Crushed in Puree Weigh Patient: daily Wound Care Instructions: Pressure injury (Bedsore) care: You may have had a pressure injury (also known as a bedsore) sometime in the past, on the very lowest part of your back (the sacrum.) To help avoid further injury please do the followin. Reposition yourself frequently, at least every 15 minutes when sitting. We recommend sitting on an air cushion. Please never use a doughnut. 2. When youre in bed, try to rest on your side as much as possible, and change position every two hours (for example, turn or tilt from your right side toward your left). If you sleep on a sleep number or medical bed, keep the head of the bed below a 30-degree angle and keep pressure off your low back for at least 5 minutes at least every two hours. 3. As needed, you may use Calazime, dimethicone moisture barrier cream, or any [id number] diaper rash cream to help prevent or treat a moisture-related rash to your bottom area and buttocks. Dressing change orders for R dorsal foot: to be done by typing element machine operator q3 days and PRN. 1) cleanse w/ NS and gauze. 2) apply skin prep to ana maria-wound skin. 3) apply Silvasorb gel to wound bed. 4) cut piece of Hydrofera Blue Ready to fit in wound bed, placing foam down towards wound and writing side facing up. 5) secure w/ steri-strips. 6) cover w/ Allevyn Life foam dressing or other bordered foam dressing. Additional: Continue lovenox until Reena is more mobile. She needs follow up with Dr Rowan in next 2 weeks to address cirrhosis and asictes. - Labs/Radiology BMP Date: 11/12/16 (weekly) CBC Date: 11/12/16 (weekly) - Follow Up Care Current Providers and Referrals: Vicki Ramirez PA [Primary Care Provider] - As per Instructions Jones Rowan [Medical Doctor] -
[2016-11-10] MEDS ORDERED: POTASSIUM CL 10 MEQ TAB PO ONE (11:18)
[2016-11-10 11:59] VITALS: RESP 20; TEMP 98; O2SAT 98
--- NOTE | 2016-11-10 12:28 | GDS ---
[f rep st] DISCHARGE SUMMARY DISCHARGE DIAGNOSES: 1. Weakness and deconditioning/multifactorial. 2. Cirrhosis with associated ascites. This is a new diagnosis. 3. T10-L1 and a T12 subacute compression fracture. 4. Hyponatremia. 5. Pleural effusions with associated atelectasis. 6. Persistent tachycardia. 7. Right foot hematoma. 8. Urinary tract infection/Escherichia coli. 9. Hypokalemia. 10. Anemia, macrocytic. 11. Mild coagulopathy. 12. 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 13. History of alcohol abuse. 14. Protein calorie malnutrition. 15. Depression. 16. Neuropathy. CONSULTATIONS DURING STAY: 1. ZAKIA Wilburn, with neurosurgical services. 2. Jolly Bains NP, with Palliative Care. 3. Dorothy Guillen MD, with surgical services. HISTORY OF PRESENT ILLNESS: Briefly, the patient is an 81-year-old female, who presented from her home with her daughter with complaints of severe back pain. She fell on September 14 and had an L3 compression fracture. She was discharged to [facility]. The patient could not participate in physical therapy, so she self-discharged. Since being home, she has had 24/7-hour care. She had significant decline over the past week prior to admission, where she had not been able to walk and not able to get out of bed. The patient also notes that she has abdominal distention and intermittent shortness of breath. During her stay, she was seen and evaluated by neurosurgical team, who did not recommend a brace, but supportive care. She had an abdominal ultrasound performed, which showed cirrhosis of the small heterogenous coarse liver and moderate ascites, which limits evaluation for focal hepatic lesions. She was treated with diuretics. There was concern of having persistent tachycardia. Workup was done to rule out an infectious etiology. She had a paracentesis performed, which did not show spontaneous bacterial peritonitis. Subsequently, a CTA was performed to evaluate the tachycardia and hypoxemia. It was negative for a PE, but noted she had moderate pleural effusions and atelectasis. Throughout her stay she has been slow to improve, but overall better. She was seen and evaluated by the palliative care team. The patient wishes to continue treatment. HOSPITAL COURSE: 1. Failure to thrive: This is multifactorial. She has a back fracture as well as a urinary tract infection. Also has cirrhosis and a history of heavy alcohol use. She is very weak on discharge, but sitting up in bed and moving more than she did on admission. 2. Cirrhosis with ascites. This is a new diagnosis. She had a paracentesis with greater than 3 L removed. She had an EGD last month that shows no varices. I am recommending, if possible, to get daily weights. Also have spoken to the patient's daughter, recommending that she get followed up with Dr. Rowan to discuss further treatment for her cirrhosis and ascites. 3. T10-L1 and T12 subacute compression fractures. Some appear acute and some are chronic. Neurosurgery is recommending no brace or kyphoplasty. 4. Hyponatremia. This is persistent also in the setting of using diuretics. Her most recent sodium is 129. Will have [facility]. 5. Pleural effusions with associated atelectasis. She needs more mobilization and needs IS. 6. Tachycardia. She had an ultrasound performed which was negative for a DVT. A CTA is negative for PE. Paracentesis was performed, which does not show SBP. I suspect frequently her tachycardia is from pain. 7. Right foot hematoma. She is status post drainage. 8. UTI. Her urine culture grew out E coli. She was treated with Rocephin for 7 days. 9. Hypokalemia. She is on Aldactone. Will have this monitored at the detention facility. 10. Microcytic anemia, likely secondary to alcohol use. 11. Mild coagulopathy secondary to alcohol use. 12. 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 Will continue Lovenox at this time. 13. History of heavy alcohol abuse. She has been abstinent since August. 14. Protein calorie malnutrition, eating well today. 15. Depression, on Remeron. 16. Neuropathy. Gabapentin dose has been increased. PENDING LABORATORIES AND TESTS: None. CONDITION AT DISCHARGE: Stable. Blood pressure is 112/57, respiratory rate is 14, heart rate is 106, O2 sats on 2 L are 97%, temperature is 36.9 Celsius. MEDICATIONS AT DISCHARGE: Please see the EMR. DISCHARGE INSTRUCTIONS: 1. Recommending that she see Dr. Rowan sooner than later. 2. To get labs monitored closely in the outpatient setting. 3. To continue Lovenox until patient is more mobile. TIME SPENT: Greater than 30 minutes discharging and coordinating care. /[id number]/MODL MTDD
[2016-11-10] MEDS: oxyCODONE IR 5 MG TAB PO PRN (12:44)
[2016-11-10 12:46] VITALS: BP 100/51
== END 2016-11-10 16:22 | DRG 433 ==
LOC: EDUNIT# → F3E 14:25
PROVIDERS: ADMIT Internal Medicine; ATTEND Internal Medicine
PROC: 0J9Q3ZZ Drainage of Right Foot Subcutaneous Tissue and Fascia, Percutaneous Approach (ICD-10-PCS; 2016-10-31)
PROC: 0W9G3ZZ Drainage of Peritoneal Cavity, Percutaneous Approach (ICD-10-PCS; principal; 2016-11-08)
DX: K70.31 Alcoholic cirrhosis of liver with ascites (principal); N39.0 Urinary tract infection, site not specified; B96.20 Unspecified Escherichia coli [E. coli] as the cause of diseases classified elsewhere; E87.1 Hypo-osmolality and hyponatremia; E87.6 Hypokalemia; R62.7 Adult failure to thrive; G89.29 Other chronic pain; M54.9 Dorsalgia, unspecified; R00.0 Tachycardia, unspecified; J90 Pleural effusion, not elsewhere classified; J98.11 Atelectasis; E44.0 Moderate protein-calorie malnutrition; G62.9 Polyneuropathy, unspecified; D53.9 Nutritional anemia, unspecified; S90.31XA Contusion of right foot, initial encounter; S32.030D Wedge compression fracture of third lumbar vertebra, subsequent encounter for fracture with routine healing; S22.070D Wedge compression fracture of T9-T10 vertebra, subsequent encounter for fracture with routine healing; S22.080D Wedge compression fracture of T11-T12 vertebra, subsequent encounter for fracture with routine healing; W19.XXXD Unspecified fall, subsequent encounter
CPT/HCPCS: 82607-90; 92610-GN; 97110-GP; 97162-GP; 97166-GO; 97530-GO; 97530-GP; 97535-GO; G0472; G8978-GP-CL; G8979-GP-CJ; G8987-GO-CM; G8988-GO-CK; G8996-GN-CI; G8997-GN-CI; G8998-GN-CI; J0696; J1650; J1940; P9047; Q9967

== ENCOUNTER 2018-08-06 10:09 | Day surgery (SDC) | payer OTHER ==
[2018-08-02 15:59] LABS: PLATELET COUNT 188 10^3/uL (150-400)
[2018-08-02 16:09] LABS: INR 1.02 (0.83-1.16)
[2018-08-06] MEDS ORDERED: LR 1,000 ML IV ONE (10:20)
[2018-08-06] MEDS ORDERED: OXYMETAZOLINE 30 ML NASAL SPRAY ONE ×2 (11:58→12:32)
[2018-08-06] MEDS ORDERED: SURGIFLO MATRIX KIT WITH THROMBIN 8 ML TP ONE (11:58)
[2018-08-06] MEDS ORDERED: LIDO/EPI 1% **Not for Epidural 20 ML MDV ONE (11:58)
[2018-08-06] MEDS ORDERED: BACITRACIN ZINC 0.5 OZ OINTTUBE TP ONE (11:58)
--- NOTE | 2018-08-06 12:07 | PDANEPAE ---
ANE History of Present Illness Sinusitis ANE Past Medical History - Cardiovascular History Hx Hypertension: No Hx Arrhythmias: No Hx Chest Pain: No Hx Coronary Artery / Peripheral Vascular Disease: No Hx CHF / Valvular Disease: Yes Hx Palpitations: No Cardiovascular History Comment: Diastolic CHF - Pulmonary History Hx COPD: No Hx Asthma/Reactive Airway Disease: No Hx Recent Upper Respiratory Infection: No Hx Oxygen in Use at Home: No Hx Sleep Apnea: No Sleep Apnea Screening Result - Last Documented: Negative - Neurologic History Hx Cerebrovascular Accident: No Hx Seizures: No Hx Dementia: No - Endocrine History Hx Diabetes: No - Renal History Hx Renal Disorders: No - Liver History Hx Hepatic Disorders: Yes Hepatic History Comment: cirrhosis - Neurological & Psychiatric Hx Hx Neurological and Psychiatric Disorders: No - Cancer History Hx Cancer: Yes Cancer History Comment: Skin CA, removed 07/22/18 - Congenital Disorder History Hx Congenital Disorders: No - GI History Hx Gastrointestinal Disorders: No - Other Health History Other Health History: UPPER [place]. sinus infection. macular degeneration. bruises easliy. dental implants infection to be removed after sinus surgery - Chronic Pain History Chronic Pain: No - Surgical History Prior Surgeries: none in last 5 yrs. dental implants. broke back surgery to repair 2016 ANE Review of Systems Review of Systems: - Exercise capacity METS (RN): 4 METS ANE Patient History - Allergies Allergies/Adverse Reactions: No Known Allergies Allergy (Verified 07/23/18 15:02) - Home Medications Home Medications: Acetaminophen [Tylenol 325mg (*)] 07/23/18 [Last Taken 1 Month Ago ~07/09/18] Alendronate Sodium 07/23/18 [Last Taken 1 Week Ago ~07/30/18] Calcium 07/23/18 [Last Taken 2 Days Ago ~08/04/18] Cholecalciferol (Vitamin D3) 07/23/18 [Last Taken 2 Days Ago ~08/04/18] Furosemide [Lasix 40 MG (*)] 07/23/18 [Last Taken 2 Days Ago ~08/04/18] Preservision Areds 2 Softgel 07/23/18 [Last Taken 08/05/18] Spironolactone [Aldactone 25 MG (*)] 07/23/18 [Last Taken 2 Days Ago ~08/04/18] Trazodone HCl 07/23/18 [Last Taken 08/04/18] Ibuprofen 400 mg 08/06/18 [Last Taken 08/05/18] - NPO status NPO Since - Liquids (Date): 08/05/18 NPO Since - Liquids (Time): 20:00 NPO Since - Solids (Date): 08/05/18 NPO Since - Solids (Time): 15:00 - Anes Hx Anes Hx: no prior problems - Smoking Hx Smoking Status: Former smoker - Family Anes Hx Family Hx Anesthesia Complications: none ANE Labs/Vital Signs - Labs Result Diagrams: 08/02/18 15:13 08/02/18 15:13 - Vital Signs Blood Pressure: 157/69 Heart Rate: 93 Respiratory Rate: 16 O2 Sat (%): 96 Height: 162.56 cm Weight: 62.596 kg ANE Physical Exam - Airway Neck exam: FROM Mallampati Score: Class 2 Mouth exam: normal dental/mouth exam - Pulmonary Pulmonary: no respiratory distress - Cardiovascular Cardiovascular: regular rate and rhythym - ASA Status ASA Status: II ANE Anesthesia Plan Anesthesia Plan: general endotracheal anesthesia
[2018-08-06] MEDS ORDERED: MIDAZOLAM 2 MG/2 ML VIAL IVP ONE (12:16)
[2018-08-06] MEDS ORDERED: OXYMETAZOLINE 30 ML NASAL SPRAY EACHNARE ONE (12:29)
--- NOTE | 2018-08-06 12:29 | PDGENHP ---
History & Physical Chief Complaint: Left maxillary sinusitis History of Present Illness: Chronic maxillary sinusitis Pertinent Past, Social, Family History: Non contributory Relevant Physical Exam: Alert, oriented, no apparent distress. External ENT exam normal. Lungs clear to auscultation. Heart regular rate. Cardiorespiratory Assessment: Appropriate for left maxillary antrostomy with endoscopic approach.
[2018-08-06] MEDS ORDERED: ROCURONIUM 50 MG/5 ML VIAL ONE (12:32)
[2018-08-06] MEDS ORDERED: fentaNYL 100 MCG/2 ML INJ ONE (12:33)
[2018-08-06] MEDS ORDERED: PROPOFOL 200 MG/20 ML VIAL ONE (12:34)
[2018-08-06] MEDS ORDERED: LABETALOL HCL 5 MG/ML 20 ML MDV ONE (13:04)
[2018-08-06] MEDS ORDERED: DEXAMETHASONE 4 MG/ML VIAL ONE (13:08)
[2018-08-06] MEDS ORDERED: ONDANSETRON 4 MG/2 ML VIAL ONE (13:08)
[2018-08-06] MEDS ORDERED: NALOXONE HCL 0.4 MG/ML INJ IVP PRN (13:52)
[2018-08-06] MEDS ORDERED: ONDANSETRON 4 MG/2 ML VIAL IVP PRN (13:52)
[2018-08-06] MEDS ORDERED: fentaNYL 100 MCG/2 ML INJ IVP PRN (13:52)
--- NOTE | 2018-08-06 14:06 | POSTOPPROG ---
Post Op Note Date of Operation: 08/06/18 Surgeon: Jovon Jain Horologist Apprentice: 0 Anesthesiologist: Estella Anesthesia: GET(General Endotracheal) Pre-op Diagnosis: Chronic L maxillary sinusitis Post-op Diagnosis: Chronic L maxillary sinusitis Indication: Chronic L max sinusitis, obstructive mid turbinate, L ethmoid sinusitis Procedure: L max antro w tissue removal, L middle turbinectomy Findings: Chronic L max sinusitis, obstructive mid turbinate, L ethmoid sinusitis Inf/Abcess present in the surg proc area at time of surgery?: Yes Depth: Deep Incisional (Fascial) EBL: Minimal Complications: none Clean Closure Performed: N/A Specimen(s): Swab, L sinonasal contents
--- NOTE | 2018-08-06 14:12 | POSTANESTH ---
Post Anesthetic Evaluation Cardiovascular Status: Similar to Pre-Op Cond Respiratory Status: Similar to Pre-op Cond. Level of Consciousness/Mental Status: Alert and Oriented Pain Control: Adequate, Prn Tx Ordered Nausea/Vomiting Control: Adequate, Prn Tx Ordered Complications Possibly Related to Anesthesia: None Noted (Skin tear noted right lower neck area. Not sure how/when it happened. bacitracin and covered with maddi.)
[2018-08-06] MEDS ORDERED: HYDROCODONE/APAP 5/325 TAB PO PRN (14:15)
[2018-08-06] MEDS ORDERED: OXYMETAZOLINE 30 ML NASAL SPRAY EACHNARE PRN (14:15)
[2018-08-06] MEDS ORDERED: NEOMY SULF/BACITRAC ZN/POLY 30 GM OINTTUBE TP ONE (15:32)
[2018-08-06 15:54] VITALS: BP 137/79
== END 2018-08-06 15:54 | disposition home or self-care (01) ==
LOC: FSGY 10:09
PROVIDERS: ATTEND Otolaryngology
DX: J32.0 Chronic maxillary sinusitis (principal); J32.2 Chronic ethmoidal sinusitis; J34.3 Hypertrophy of nasal turbinates
CPT/HCPCS: J1100; J2250; J2405; J2704; J3010